=== PATIENT | female | born 1985 | race Caucasian/White ===

== ENCOUNTER 2017-01-08 03:09 | Emergency (ER) ==
[2017-01-08 03:21] VITALS: BP 125/83; TEMP 98.1; BMI 43.5
[2017-01-08 03:36] LABS: BILIRUBIN,URINE Negative (NEGATIVE); KETONES,URINE Negative (NEGATIVE); LEUKOCYTE ESTERASE ,URINE 1+ (NEGATIVE); NITRITE,URINE Negative (NEGATIVE); PH,URINE 5.5 (5-9); PROTEIN,URINE Negative (NEGATIVE); URINE, BLOOD Negative (NEGATIVE)
[2017-01-08 03:42] LABS: ADD URINE MICROSCOPIC YES; BACTERIA,URINE TRACE (NOT PRESENT)
[2017-01-08] MEDS ORDERED: SODIUM CHLORIDE 1,000 ML IV STA (03:47)
[2017-01-08] MEDS ORDERED: DEMEROL 25 MG/ML SYRINGE IVP STA (03:48)
[2017-01-08] MEDS ORDERED: ZOFRAN 4 MG/2 ML IVP STA (03:48)
[2017-01-08 04:08] LABS: BASOPHILS # (AUTO) 0.1 K/uL (0-0.2); BASOPHILS % (AUTO) 0.7 % (0.0-3.0); EOSINOPHILS # (AUTO) 0.3 K/ul (0.0-0.7); EOSINOPHILS % (AUTO) 3.1 % (0.0-7.0); HEMATOCRIT 43.5 % (37.0-47.0); HEMOGLOBIN 15.1 g/dl (12.0-16.0); IMMATURE GRANULOCYTE % (AUTO) 0.4 % (0.0-5.0); LYMPHOCYTES # (AUTO) 3.7 K/uL (0.60-3.4); LYMPHOCYTES % (AUTO) 36.9 (10.0-50.0); MEAN CORPUSCULAR HEMOGLOBIN 29.8 pg (27.0-31.0); MEAN CORPUSCULAR HGB CONC 34.7 (31.8-35.4); MEAN CORPUSCULAR VOLUME 85.8 fl (81.0-99.0); MONOCYTES # (AUTO) 0.7 K/uL (0.4-2.0); MONOCYTES % (AUTO) 7.2 (0-10); NEUTROPHILS # (AUTO) 5.1 K/ul (2.0-6.9); NEUTROPHILS % (AUTO) 51.7; PLATELET COUNT 247 10^3/uL (140-440); RED BLOOD COUNT 5.07 10^6/ul (4.20-5.40); WHITE BLOOD COUNT 9.93 K/ul (4.6-10.2)
[2017-01-08] MEDS ORDERED: BENADRYL IVP STA (04:20)
[2017-01-08] MEDS ORDERED: BENADRYL ONE (04:21)
[2017-01-08 04:24] LABS: SERUM PREGNANCY INTERNAL QC INTERNAL QC VALID
[2017-01-08 04:29] LABS: ALBUMIN 3.5 g/dL (3.4-5.0); ALBUMIN/GLOBULIN RATIO 0.83; ANION GAP 12.9; BILIRUBIN,TOTAL 0.35 mg/dL (0.00-1.20); BUN/CREATININE RATIO 11.62; CALCIUM 9.2 mg/dL (8.2-10.2); CREATININE 0.86 mg/dL (0.60-1.30); POTASSIUM 3.9 mmol/L (3.5-5.10); TOTAL PROTEIN 7.7 g/dL (6.4-8.2)
[2017-01-08 05:11] LABS: ERYTHROCYTE SEDIMENTATION RATE 26 mm/hr (0-20); ESR INTERNAL QC INTERNAL QC VALID
--- NOTE | 2017-01-08 05:34 | CT ---
EXAM: CT scan abdomen pelvis with without contrast HISTORY: Right lower quadrant pain COMPARISON: CT scan abdomen pelvis 07/27/2016 FINDINGS: Contiguous axial images were obtained through the abdomen and pelvis both before after un eventful administration of intravenous contrast utilizing 3-mm collimation. Sagittal and coronal re constructions were imaged and reviewed. The visualized lung bases are clear.. There has been prior cholecystectomy.. The right lobe of liver is enlarged which may represent a normal variant. The pa ncreas, spleen and adrenal glands have normal enhanced CT appearance. The kidneys excrete contrast in a normal fashion bilaterally. There is no evidence of free fluid or inflammatory changes.. Bila teral ensure devices are noted. Bone windows reveals no evidence of lytic or blastic lesions. IMPRESSION: No acute intra-abdominal findings. Prior cholecystectomy.
[2017-01-08] MEDS ORDERED: CIPRO PO STA (06:14)
--- NOTE | 2017-01-08 06:15 | ED.PDOC ---
General ED Provider: Dr. NATIVIDAD MATHIAS-ER Chief Complaint: Abdominal Pain Stated Complaint: i hurt down low Time Seen by Physician: 03:15 Mode of Arrival: Walk-In Information Source: Patient Exam Limitations: No limitations Primary Care Provider: IVIS FAIRBANKS Nursing and Triage Documentation Reviewed and Agree: Yes GI Complaint Exam - Abdominal Pain Complaint/Exam Onset: Gradual Duration: 07/19 weejs Symptoms Are: Still present Timing: Intermittent Initial Severity: Mild Current Severity: Mild Location of Pain: Discrete, Suprapubic Radiates To: Reports: Flank Character: Reports: Dull, Aching Aggravating: Reports: None Alleviating: Reports: Spontaneous resolution Associated Signs and Symptoms: Reports: Back pain, Urinary frequency, Nausea. Denies: Diaphoresis, Fever, Cough, Chest pain, Dizziness, Constipation, Blood in stool, Dysuria, Decreased urine output, Decreased appetite, Vaginal bleeding , Vaginal discharge, Vomiting, Diarrhea, Sore throat, Decreased activity Related History: Reports: Similar episode AAA Risk Factors: Reports: None Ovarian Torsion Risk Factors: Reports: Reproductive age Surgical Obstruction Risk Factors: Reports: Prior abdominal surgery Related Surgical History: Reports: Cholecystectomy Patient Rh Status: Unknown Abdominal Findings: Present: None Differential Diagnoses: Constipation, Pancreatitis, Ureteral Stone Review of Systems - Review Of Systems Constitutional: Reports: No symptoms Eyes: Reports: No symptoms Ears, Nose, Mouth, Throat: Reports: No symptoms Respiratory: Reports: No symptoms Cardiac: Reports: No symptoms GI: Reports: Abdominal pain, Nausea : Reports: No symptoms Musculoskeletal: Reports: No symptoms Skin: Reports: No symptoms Neurological: Reports: No symptoms Endocrine: Reports: No symptoms Hematologic/Lymphatic: Reports: No symptoms All Other Systems: Reviewed and Negative Past Medical History - Past Medical History Endocrine: Reports: None Cardiovascular: Reports: None Respiratory: Reports: None Hematological: Reports: None Gastrointestinal: Reports: None Genitourinary: Reports: None Neuro/Psych: Reports: None Musculoskeletal: Reports: None Cancer: Reports: None Last Menstrual Period: LAST WEEK Other Pertinent Past Medical History: 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 , viD def - Surgical History General Surgical History: Reports: Tubal ligation, Cholecystectomy, Other ( TUBES TO EARS) - Family History Family History: Reports: None - Social History Smoking Status: Current every day smoker, Heavy tobacco smoker Hx Substance Use: No Alcohol Screening: None Lives: With family - Immunizations Tetanus Shot up to Date: Yes Physical Exam - Physical Exam Appearance: Well-appearing, No pain distress, Well-nourished Pain Distress: Mild Eyes: ROSA ELENA, EOMI, Conjunctiva clear ENT: Ears normal, Nose normal, Oropharynx normal Neck: Supple Respiratory: Airway patent, Breath sounds clear, Breath sounds equal, Respirations nonlabored Cardiovascular: RRR GI/: Soft, Nontender, No masses, Bowel sounds normal, No Organomegaly Musculoskeletal: Normal strength, ROM intact, No edema, No calf tenderness Skin: Warm Neurological: Sensation intact Psychiatric: Affect appropriate, Mood appropriate Interpretation - Radiology Interpretation Radiology Interpretation By: Radiologist Radiology Results: Negative Exam Interpreted: CT Scan Re-Evaluation - Re-Evaluation Time of Re-Evaluation: 06:17 Status: Improved Vital Signs Stable: Yes Pain Level: 0 Appearance: NAD Lungs: Clear Skin: Warm and Dry Neuro: Alert and Oriented X3 CV: RRR Critical Care Note - Critical Care Note Total Time (mins): 0 Course - Course Hematology/Chemistry: 01/08/17 04:05 01/08/17 04:05 Orders, Labs, Meds: Lab Review 01/08/17 01/08/17 03:30 04:05 WBC 9.93 RBC 5.07 Hgb 15.1 Hct 43.5 MCV 85.8 MCH 29.8 MCHC 34.7 RDW Coeff of Alice 12.7 Plt Count 247 Immature Gran % (Auto) 0.4 Neut % (Auto) 51.7 Lymph % (Auto) 36.9 [place] % (Auto) 7.2 Eos % (Auto) 3.1 Baso % (Auto) 0.7 Immature Gran # (Auto) 0.0 Neut # 5.1 Lymph # 3.7 H [place] # 0.7 Eos # 0.3 Baso # 0.1 ESR 26 H Sodium 139 Potassium 3.9 Chloride 103 Carbon Dioxide 27 Anion Gap 12.9 BUN 10 Creatinine 0.86 Estimated GFR (MDRD) 76.00 BUN/Creatinine Ratio 11.62 Glucose 78 Calcium 9.2 Total Bilirubin 0.35 AST 18 ALT 50 Alkaline Phosphatase 93 Total Protein 7.7 Albumin 3.5 Globulin 4.2 Albumin/Globulin Ratio 0.83 Amylase 38 Lipase 17 Serum , Qual Negative Urine Color Yellow Urine Clarity Slightly Urine pH 5.5 Ur Specific [place] 1.025 Urine Protein Negative Urine Glucose (UA) Negative Urine Ketones Negative Urine Blood Negative Urine Nitrite Negative Urine Bilirubin Negative Urine Urobilinogen 1.0 Ur Leukocyte Esterase 1+ Urine Microscopic WBC 5-10 Ur Squamous Epith Cells 2-5 Urine Bacteria Trace Orders Category Date Time Status NPO REMINDER: IMAGING ONCE CARE 01/08/17 03:47 Completed IV [ED IV/MEDIPORT/POWERPORT] .ONCE EMERGENCY 01/08/17 03:46 Active AMYLASE Stat LAB 01/08/17 04:05 Completed CBC W/ AUTO DIFF Stat LAB 01/08/17 04:05 Completed COMPREHENSIVE METABOLIC PANEL Stat LAB 01/08/17 04:05 Completed ESR Stat LAB 01/08/17 04:05 Completed LIPASE Stat LAB 01/08/17 04:05 Completed SERUM Stat LAB 01/08/17 04:05 Completed UA [URINALYSIS C & S IF INDICATED] Stat LAB 01/08/17 03:30 Completed URINE CULTURE Stat LAB 01/08/17 03:42 Received 0.9 % Sodium Chloride [Saline Flush] MEDS 01/08/17 03:46 Ordered 1 syr IVF PRN PRN Ciprofloxacin HCl [Cipro] MEDS 01/08/17 06:14 Stat 500 mg PO ONCE STA Diphenhydramine Inj [Benadryl] MEDS 01/08/17 04:20 Discontinued 25 mg IVP ONCE STA Diphenhydramine Inj [Benadryl] MEDS 01/08/17 04:21 Discontinued 50 mg .ROUTE .STK-MED ONE Meperidine HCl/Pf [Demerol 25 mg/ml Syringe] MEDS 01/08/17 03:48 Discontinued 25 mg IVP ONCE STA Ondansetron HCl/Pf [Zofran 4 mg/2 ml] MEDS 01/08/17 03:48 Discontinued 4 mg IVP ONCE STA Sodium Chloride 0.9% [Sodium Chloride] 1,000 ml MEDS 01/08/17 03:47 Active IV 100 mls/hr CT ABDOMEN/PELVIS W/WO CONTRAS Stat RADS 01/08/17 03:47 Completed Medications Generic Name Dose Route Start Last Admin Trade Name Freq PRN Reason Stop Dose Admin Sodium Chloride 1,000 mls @ 100 mls/hr 01/08/17 03:47 01/08/17 04:06 Sodium Chloride IV 01/08/17 13:46 100 mls/hr .Q10H STA Administration Sodium Chloride 1 syr 01/08/17 03:46 01/08/17 04:14 Saline Flush IVF 1 syr PRN PRN Administration To flush IV Discontinued Medications Generic Name Dose Route Start Last Admin Trade Name Lien PRN Reason Stop Dose Admin Diphenhydramine HCl 25 mg 01/08/17 04:20 01/08/17 04:24 Benadryl IVP 01/08/17 04:21 25 mg ONCE STA Administration Meperidine HCl 25 mg 01/08/17 03:48 01/08/17 04:14 Demerol 25 Mg/Ml Syringe IVP 01/08/17 03:49 25 mg ONCE STA Administration Ondansetron HCl 4 mg 01/08/17 03:48 01/08/17 04:10 Zofran 4 Mg/2 Ml IVP 01/08/17 03:49 4 mg ONCE STA Administration Vital Signs: Temp Pulse Resp BP Pulse Ox 01/08/17 03:10 98.1 F 98 H 18 125/83 100 Departure - Departure Time of Disposition: 06:17 Disposition: HOME SELF-CARE Discharge Problem: Urinary tract disease Instructions: Urinary Tract Infection in Women (ED) Condition: Good Pt referred to PMD for follow-up: Yes Additional Instructions: cipro 500mg bid x 7days--f/u with pcp this week to recheck urine Allergies/Adverse Reactions: Allergies banana Adverse Reaction (Verified 01/08/17 03:22) clarithromycin [From Biaxin] Adverse Reaction (Verified 01/08/17 03:22) morphine Adverse Reaction (Verified 01/08/17 03:22) nicotine [From Nicoderm CQ] Adverse Reaction (Verified 01/08/17 03:22) Penicillins Adverse Reaction (Verified 01/08/17 03:22) prednisone Adverse Reaction (Verified 01/08/17 03:23) STATES ANYTHING OVER 10MG RAISES THE BLOOD PRESSURE tramadol Adverse Reaction (Verified 01/08/17 03:22) Home Medications: Ambulatory Orders Cholecalciferol (Vitamin D3) [Vitamin D] 50,000 unit PO WEEKLY 04/19/14 Cyanocobalamin (Vitamin B-12) [Vitamin B-12] 1,000 mcg IM DIRECTED 04/19/14 Ibuprofen 800 mg PO TID PRN 01/08/17 Transfer Form Completed: No Disposition Discussed With: Patient
== END 2017-01-08 06:25 | disposition home or self-care (01) ==
LOC: ED 03:09
DX: N39.0 Urinary tract infection, site not specified (principal); F17.210 Nicotine dependence, cigarettes, uncomplicated
CPT/HCPCS: 36415; 80053; 81001; 82150; 83690; 84703; 85025; 85651; 87086; 96361; 96374; 96375; 99283

== ENCOUNTER 2017-01-24 17:38 | Emergency (ER) ==
[2017-01-24 17:44] VITALS: BP 120/79; TEMP 99.6; BMI 46.6
--- NOTE | 2017-01-24 17:54 | ED.PDOC ---
General ED Provider: Dr. VINNIE PAZ JR Chief Complaint: Chest Pain Stated Complaint: 2 days nausea unable to keep liquids down--temp 102 with cough - [facility] sunday 3 days ago allergic reaction food throat swelling has been sick since treating for flu-2 days---[End]99.6 109 20 95% 120/79 04/26 Time Seen by Physician: 17:53 Mode of Arrival: Walk-In Information Source: Family Exam Limitations: No limitations Nursing and Triage Documentation Reviewed and Agree: No Review of Systems - Review Of Systems Constitutional: Reports: Chills, Malaise, Weakness, Sweats, Loss of appetite Eyes: Reports: No symptoms Ears, Nose, Mouth, Throat: Reports: Throat pain Respiratory: Reports: No symptoms Cardiac: Reports: No symptoms GI: Reports: Abdominal pain, Nausea, Vomiting. Denies: Diarrhea : Reports: No symptoms Musculoskeletal: Reports: No symptoms Skin: Reports: No symptoms Neurological: Reports: No symptoms Endocrine: Reports: No symptoms Hematologic/Lymphatic: Reports: No symptoms All Other Systems: Other Past Medical History - Past Medical History Endocrine: Reports: None Cardiovascular: Reports: None Respiratory: Reports: None Hematological: Reports: None Gastrointestinal: Reports: None Genitourinary: Reports: Kidney stones Neuro/Psych: Reports: None Musculoskeletal: Reports: None Cancer: Reports: None Last Menstrual Period: january 19, 2017 Other Pertinent Past Medical History: 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 , viD deff,, PERNICIOUS ANEMIA - Surgical History General Surgical History: Reports: Tubal ligation, Cholecystectomy, Other ( TUBES TO EARS) - Family History Family History: Reports: None - Social History Smoking Status: Current every day smoker, Heavy tobacco smoker Hx Substance Use: No Alcohol Screening: None Physical Exam - Physical Exam Appearance: Ill-appearing Ill-appearing: Mild Pain Distress: Mild Eyes: ROSA ELENA, EOMI, Conjunctiva clear ENT: Ears normal, Nose normal, Oropharynx normal Neck: Supple Respiratory: Airway patent, Breath sounds clear, Breath sounds equal, Respirations nonlabored Cardiovascular: RRR, Pulses normal, No rub, No murmur GI/: Soft, No masses, Bowel sounds normal, No Organomegaly, Tender (right upper abdomen) Musculoskeletal: Normal strength, ROM intact, No edema, No calf tenderness Skin: Warm, Dry, Normal color Neurological: Sensation intact, Motor intact, Reflexes intact, Cranial nerves intact, Alert, Oriented Psychiatric: Affect appropriate, Mood appropriate Re-Evaluation - Re-Evaluation Time of Re-Evaluation: 19:04 (still nauseated) Status: Unchanged Physician Notification - Case Discussed Endorsed To/Discussed With: neil Time of Discussion: 19:05 (patient still nauseated) Critical Care Note - Critical Care Note Total Time (mins): 0 Course - Course Hematology/Chemistry: 01/24/17 18:04 01/24/17 18:04 Orders, Labs, Meds: Lab Review 01/24/17 01/24/17 17:50 18:04 WBC 13.84 H RBC 4.94 Hgb 14.8 Hct 42.2 MCV 85.4 MCH 30.0 MCHC 35.1 RDW Coeff of [place] 12.8 Plt Count 244 Immature Gran % (Auto) 0.5 Neut % (Auto) 73.9 Lymph % (Auto) 15.5 [place] % (Auto) 6.6 Eos % (Auto) 3.0 Baso % (Auto) 0.5 Immature Gran # (Auto) 0.1 Neut # 10.2 H Lymph # 2.2 [place] # 0.9 Eos # 0.4 Baso # 0.1 Sodium 138 Potassium 3.7 Chloride 103 Carbon Dioxide 27 Anion Gap 11.7 BUN 8 Creatinine 0.74 Estimated GFR (MDRD) 90.00 BUN/Creatinine Ratio 10.81 Glucose 94 Calcium 8.7 Total Bilirubin 0.35 AST 14 L ALT 24 Alkaline Phosphatase 84 Total Protein 7.2 Albumin 3.3 L Globulin 3.9 Albumin/Globulin Ratio 0.85 Amylase 41 Lipase 21 Urine Color Yellow Urine Clarity Slightly Urine pH 5.0 Ur Specific [place] 1.020 Urine Protein Negative Urine Glucose (UA) Negative Urine Ketones Negative Urine Blood Negative Urine Nitrite Negative Urine Bilirubin Negative Urine Urobilinogen 0.2 Ur Leukocyte Esterase 1+ Urine Microscopic WBC 5-10 Ur Squamous Epith Cells 10-20 H. pylori IgG Antibody Positive Orders Category Date Time Status ED IV/MEDIPORT/POWERPORT .ONCE EMERGENCY 01/24/17 17:58 Active AMYLASE Stat LAB 01/24/17 18:04 Completed CBC W/ AUTO DIFF Stat LAB 01/24/17 18:04 Completed COMPREHENSIVE METABOLIC PANEL Stat LAB 01/24/17 18:04 Completed H. PYLORI SCREEN Stat LAB 01/24/17 18:04 Completed LIPASE Stat LAB 01/24/17 18:04 Completed URINALYSIS C & S IF INDICATED Stat LAB 01/24/17 17:50 Completed URINE CULTURE Routine LAB 01/24/17 17:50 Received 0.9 % Sodium Chloride [Saline Flush] MEDS 01/24/17 17:58 Ordered 1 syr IVF PRN PRN Ondansetron HCl/Pf [Zofran 4 mg/2 ml] MEDS 01/24/17 17:59 Discontinued 4 mg IVP ONCE STA Promethazine HCl [Phenergan 25 mg/ml Vial] 25 mg MEDS 01/24/17 19:04 Active 0.9 % Sodium Chloride [Sodium Chloride] 50 ml IV ONCE Sodium Chloride 0.9% [Sodium Chloride] 1,000 ml MEDS 01/24/17 17:59 Discontinued IV BOLUS Medications Generic Name Dose Route Start Last Admin Trade Name Freq PRN Reason Stop Dose Admin Promethazine HCl 25 mg/ Sodium 51 mls @ 75 mls/hr 01/24/17 19:04 Chloride IV 01/24/17 19:44 ONCE STA Sodium Chloride 1 syr 01/24/17 17:58 01/24/17 18:16 Saline Flush IVF 1 syr PRN PRN Administration To flush IV Discontinued Medications Generic Name Dose Route Start Last Admin Trade Name Freq PRN Reason Stop Dose Admin Sodium Chloride 1,000 mls @ 1,000 mls/hr 01/24/17 17:59 01/24/17 18:16 Sodium Chloride IV 01/24/17 18:58 1,000 mls/hr BOLUS STA Administration Ondansetron HCl 4 mg 01/24/17 17:59 01/24/17 18:18 Zofran 4 Mg/2 Ml IVP 01/24/17 18:00 4 mg ONCE STA Administration Vital Signs: Temp Pulse Resp BP Pulse Ox 01/24/17 17:39 99.6 F 109 H 20 120/79 95 Departure - Departure Time of Disposition: 18:37 Disposition: HOME SELF-CARE Discharge Problem: Gastritis, Helicobacter positive gastritis Instructions: Gastritis (ED), Helicobacter Pylori (ED) Condition: Good Pt referred to PMD for follow-up: Yes Additional Instructions: home phenrgan for nausea quadruple therapy for helicobacter return if unable to keep clear liquids down Prescriptions: Bismuth/Metronid/Tetracycline [Pylera Capsule] 1 each PO DIRECTED #1 packet Lansoprazole/Amoxiciln/Clarith [Prevpac Patient Pack] 1 each PO BID #1 combo..pkg Allergies/Adverse Reactions: Allergies banana Adverse Reaction (Verified 01/24/17 17:47) clarithromycin [From Biaxin] Adverse Reaction (Verified 01/24/17 17:47) meperidine [From Demerol] Adverse Reaction (Verified 01/24/17 17:47) morphine Adverse Reaction (Verified 01/24/17 17:47) nicotine [From Nicoderm CQ] Adverse Reaction (Verified 01/24/17 17:47) Penicillins Adverse Reaction (Verified 01/24/17 17:47) prednisone Adverse Reaction (Verified 01/24/17 17:47) STATES ANYTHING OVER 10MG RAISES THE BLOOD PRESSURE tramadol Adverse Reaction (Verified 01/24/17 17:47) Home Medications: Ambulatory Orders Cholecalciferol (Vitamin D3) [Vitamin D] 50,000 unit PO WEEKLY 04/19/14 Cyanocobalamin (Vitamin B-12) [Vitamin B-12] 1,000 mcg IM DIRECTED 04/19/14 Ibuprofen 800 mg PO TID PRN 01/08/17 Bismuth/Metronid/Tetracycline [Pylera Capsule] 1 each PO DIRECTED #1 packet 01/24/17 Lansoprazole/Amoxiciln/Clarith [Prevpac Patient Pack] 1 each PO BID #1 combo..pkg 01/24/17
[2017-01-24] MEDS ORDERED: SODIUM CHLORIDE 1,000 ML IV STA ×2 (17:59→19:06)
[2017-01-24] MEDS ORDERED: ZOFRAN 4 MG/2 ML IVP STA (17:59)
[2017-01-24 18:08] LABS: BILIRUBIN,URINE Negative (NEGATIVE); KETONES,URINE Negative (NEGATIVE); LEUKOCYTE ESTERASE ,URINE 1+ (NEGATIVE); NITRITE,URINE Negative (NEGATIVE); PROTEIN,URINE Negative (NEGATIVE); URINE, BLOOD Negative (NEGATIVE)
[2017-01-24 18:10] LABS: ADD URINE MICROSCOPIC YES
[2017-01-24 18:17] LABS: BASOPHILS # (AUTO) 0.1 K/uL (0-0.2); BASOPHILS % (AUTO) 0.5 % (0.0-3.0); EOSINOPHILS # (AUTO) 0.4 K/ul (0.0-0.7); HEMATOCRIT 42.2 % (37.0-47.0); HEMOGLOBIN 14.8 g/dl (12.0-16.0); IMMATURE GRANULOCYTE % (AUTO) 0.5 % (0.0-5.0); LYMPHOCYTES # (AUTO) 2.2 K/uL (0.60-3.4); LYMPHOCYTES % (AUTO) 15.5 (10.0-50.0); MEAN CORPUSCULAR HGB CONC 35.1 (31.8-35.4); MEAN CORPUSCULAR VOLUME 85.4 fl (81.0-99.0); MONOCYTES # (AUTO) 0.9 K/uL (0.4-2.0); MONOCYTES % (AUTO) 6.6 (0-10); NEUTROPHILS # (AUTO) 10.2 K/ul (2.0-6.9); NEUTROPHILS % (AUTO) 73.9; PLATELET COUNT 244 10^3/uL (140-440); RED BLOOD COUNT 4.94 10^6/ul (4.20-5.40); WHITE BLOOD COUNT 13.84 K/ul (4.6-10.2)
[2017-01-24 18:23] LABS: H. PYLORI ANTIBODY POSITIVE (NEGATIVE)
[2017-01-24 18:24] LABS: H.PYLORI INTERNAL QC INTERNAL QC VALID
[2017-01-24 18:30] LABS: ALBUMIN 3.3 g/dL (3.4-5.0); ALBUMIN/GLOBULIN RATIO 0.85; ANION GAP 11.7; BILIRUBIN,TOTAL 0.35 mg/dL (0.00-1.20); BUN/CREATININE RATIO 10.81; CALCIUM 8.7 mg/dL (8.2-10.2); CREATININE 0.74 mg/dL (0.60-1.30); POTASSIUM 3.7 mmol/L (3.5-5.10); TOTAL PROTEIN 7.2 g/dL (6.4-8.2)
[2017-01-24] MEDS ORDERED: PHENERGAN 25 MG/ML VIAL 25 MG in SODIUM CHLORIDE 50 ML IV STA (19:04)
[2017-01-24] MEDS ORDERED: PHENERGAN 25 MG/ML VIAL ONE (19:08)
[2017-01-24] MEDS ORDERED: PROTONIX IV IVP STA (19:08)
[2017-01-24] MEDS ORDERED: GI COCKTAIL PO STA (19:08)
[2017-01-24] MEDS ORDERED: DUONEB NEB STA (19:13)
== END 2017-01-24 20:27 | disposition home or self-care (01) ==
LOC: ED 17:38
DX: A04.8 Other specified bacterial intestinal infections (principal); K29.70 Gastritis, unspecified, without bleeding; F17.210 Nicotine dependence, cigarettes, uncomplicated; Z79.899 Other long term (current) drug therapy
CPT/HCPCS: 36415; 80053; 81001; 82150; 83690; 85025; 86677; 87086; 94640; 96361; 96365; 96375; 99283

== ENCOUNTER 2017-02-07 23:25 | Emergency (ER) ==
--- NOTE | 2017-02-07 23:38 | ED.PDOC ---
General ED Provider: Dr. LESIA HINKLE Chief Complaint: Shortness of Air Stated Complaint: Pateint is a 31 year old sore throat, felt like something was stuck in throat making chest feel tight, went to bed, woke up itching all over, whelps on both hands, then started feeling short of air. Time Seen by Physician: 23:40 Mode of Arrival: Walk-In Information Source: Patient Exam Limitations: No limitations Nursing and Triage Documentation Reviewed and Agree: Yes Respiratory Complaint Exam - Shortness of Air Complaint/Exam Onset/Duration: 2 hours ago Symptoms Are: Still present Timing: Constant Initial Severity: Moderate Current Severity: Mild Character: Reports: Dyspnea at rest Aggravating: Reports: None Alleviating: Reports: None Associated Signs and Symptoms: Denies: Cough, Wheezing, Chest pain with cough, Chest pain, Fever, Chills, Diaphoresis, Nasal congestion, Dizziness, Calf pain, Calf swelling, Edema, Rapid breathing, Labored breathing, Decreased intake Respiratory Distress: None Stridor Present: No Tracheal Deviation: No Subcutaneous Emphysema: No Accessory Muscle Use: No Retractions: Not Present Diminished Breath Sounds: No Prolonged Expiratory Phase: No Unable to Speak Full Sentences: No Fatigue: No Leg Swelling: No Eduardo's Sign Present: No Grunting Respirations: No Kussmaul Respirations: No Differential Diagnoses: Bronchiolitis Review of Systems - Review Of Systems Constitutional: Reports: No symptoms Eyes: Reports: No symptoms Ears, Nose, Mouth, Throat: Reports: Throat pain Respiratory: Reports: No symptoms Cardiac: Reports: Chest pain GI: Reports: No symptoms : Reports: No symptoms Musculoskeletal: Reports: No symptoms Skin: Reports: Rash Neurological: Reports: No symptoms Endocrine: Reports: No symptoms Hematologic/Lymphatic: Reports: No symptoms All Other Systems: Reviewed and Negative Past Medical History - Past Medical History Endocrine: Reports: None Cardiovascular: Reports: None Respiratory: Reports: None Hematological: Reports: None Gastrointestinal: Reports: None Genitourinary: Reports: Kidney stones Neuro/Psych: Reports: None Musculoskeletal: Reports: None Cancer: Reports: None Last Menstrual Period: 01/17/17 Other Pertinent Past Medical History: B 10 deff , viD deff,, PERNICIOUS ANEMIA - Surgical History General Surgical History: Reports: Tubal ligation, Cholecystectomy, Other ( TUBES TO EARS) - Family History Family History: Reports: None - Social History Smoking Status: Current every day smoker Hx Substance Use: No Alcohol Screening: None - Immunizations Tetanus Shot up to Date: Yes Physical Exam - Physical Exam Appearance: Obese Ill-appearing: Moderate Pain Distress: Mild Eyes: ROSA ELENA ENT: Oropharynx normal Neck: Supple Respiratory: Airway patent, Breath sounds clear, Breath sounds equal, Respirations nonlabored Cardiovascular: RRR, Pulses normal, No rub, No murmur GI/: Soft, Nontender Musculoskeletal: Normal strength, ROM intact, No edema, No calf tenderness Neurological: Sensation intact, Motor intact, Reflexes intact, Cranial nerves intact, Alert, Oriented Critical Care Note - Critical Care Note Total Time (mins): 0 Course - Course Orders, Labs, Meds: Orders Category Date Time Status MOLECULAR GROUP A STREP Stat LAB 02/07/17 23:45 Completed STREP SCREEN Stat LAB 02/07/17 23:45 Completed Diphenhydramine HCl [Benadryl] MEDS 02/07/17 23:42 Discontinued 50 mg PO ONCE STA Hydrocortisone [Hydrocortisone 1% Cream] MEDS 02/08/17 00:08 Discontinued 1 applic TP ONCE STA Loratadine [Claritin] MEDS 02/08/17 00:09 Discontinued 10 mg PO ONCE STA Methylprednisolone Sod Succ/Pf [Solu-Medrol 125 mg] MEDS 02/07/17 23:40 Discontinued 125 mg IM ONCE STA Ranitidine HCl [Zantac] MEDS 02/08/17 00:09 Discontinued 300 mg PO ONCE STA Medications Discontinued Medications Generic Name Dose Route Start Last Admin Trade Name Darinelq PRN Reason Stop Dose Admin Diphenhydramine HCl 50 mg 02/07/17 23:42 02/08/17 00:00 Benadryl PO 02/07/17 23:43 50 mg ONCE STA Administration Hydrocortisone 1 applic 02/08/17 00:08 02/08/17 00:17 Hydrocortisone 1% Cream TP 02/08/17 00:09 1 applic ONCE STA Administration Loratadine 10 mg 02/08/17 00:09 02/08/17 00:18 Claritin PO 02/08/17 00:10 10 mg ONCE STA Administration Methylprednisolone Sodium Succinate 125 mg 02/07/17 23:40 02/08/17 00:11 Solu-Medrol 125 Mg IM 02/07/17 23:41 125 mg ONCE STA Administration Ranitidine HCl 300 mg 02/08/17 00:09 02/08/17 00:18 Zantac PO 02/08/17 00:10 300 mg ONCE STA Administration Vital Signs: Temp Pulse Resp BP Pulse Ox 02/07/17 23:26 98 F 82 20 101/73 96 Departure - Departure Time of Disposition: 00:15 Disposition: HOME SELF-CARE Discharge Problem: Dermatitis Instructions: Contact Dermatitis (ED) Condition: Stable Pt referred to PMD for follow-up: Yes Additional Instructions: Take prednisone 10mg daily for 5 days Avoid any of the causative agent Prescriptions: Prednisone 10 mg PO ONCE #5 tablet Allergies/Adverse Reactions: Allergies banana Adverse Reaction (Verified 02/07/17 23:36) clarithromycin [From Biaxin] Adverse Reaction (Verified 02/07/17 23:36) meperidine [From Demerol] Adverse Reaction (Verified 02/07/17 23:36) morphine Adverse Reaction (Verified 02/07/17 23:36) nicotine [From Nicoderm CQ] Adverse Reaction (Verified 02/07/17 23:36) Penicillins Adverse Reaction (Verified 02/07/17 23:36) prednisone Adverse Reaction (Verified 02/07/17 23:36) STATES ANYTHING OVER 10MG RAISES THE BLOOD PRESSURE tramadol Adverse Reaction (Verified 02/07/17 23:36) Home Medications: Ambulatory Orders Cholecalciferol (Vitamin D3) [Vitamin D] 50,000 unit PO WEEKLY 04/19/14 Cyanocobalamin (Vitamin B-12) [Vitamin B-12] 1,000 mcg IM DIRECTED 04/19/14 Ibuprofen 800 mg PO TID PRN 01/08/17 Prednisone 10 mg PO ONCE #5 tablet 02/07/17 Disposition Discussed With: Patient, Family
[2017-02-07] MEDS ORDERED: SOLU-MEDROL 125 MG IM STA (23:40)
[2017-02-07] MEDS ORDERED: BENADRYL PO STA (23:42)
[2017-02-07 23:49] VITALS: BP 101/73; TEMP 98; BMI 43.5
[2017-02-08] MEDS ORDERED: HYDROCORTISONE 1% CREAM TP STA (00:08)
[2017-02-08] MEDS ORDERED: HYDROCORTISONE 2.5% CREAM TP STA (00:08)
[2017-02-08] MEDS ORDERED: ZANTAC PO STA (00:09)
[2017-02-08] MEDS ORDERED: CLARITIN PO STA (00:09)
== END 2017-02-08 00:40 | disposition home or self-care (01) ==
LOC: ED 23:25
DX: L30.9 Dermatitis, unspecified (principal); L29.9 Pruritus, unspecified; J02.9 Acute pharyngitis, unspecified; R06.02 Shortness of breath; R07.89 Other chest pain; F17.210 Nicotine dependence, cigarettes, uncomplicated
CPT/HCPCS: 87651; 87880; 96372; 99283

== ENCOUNTER 2017-06-21 20:26 | Emergency (ER) ==
[2017-06-21 20:32] VITALS: BP 139/99; TEMP 99; BMI 37.9
--- NOTE | 2017-06-21 20:47 | ED.PDOC ---
General ED Provider: Dr. LESIA HINKLE Chief Complaint: Tooth Problem Stated Complaint: Patient is a 32 year old female who complains of right bottom molar pain, has been seen by dentist and prescribed clindamycin with a two week apt. Time Seen by Physician: 21:08 Mode of Arrival: Walk-In Information Source: Patient Exam Limitations: No limitations Primary Care Provider: IVIS FAIRBANKS Nursing and Triage Documentation Reviewed and Agree: Yes EENT Complaint Exam - Dental/Oral Complaint/Exam Mechanism of Injury: No known trauma Onset/Duration: weeks Symptoms Are: Still present Timing: Constant Initial Severity: Moderate Current Severity: Moderate Location: Right lower molar Character: Reports: Aching, Throbbing Aggravating: Reports: Heat, Cold Alleviating: Reports: None Associated Signs and Symptoms: Reports: Foul odor, Foul taste in mouth Related History: Reports: Similar episode Cardiac Risk Factors: Reports: None Dental/Oral Surgical History: Reports: None Tooth Findings: Present: Gross decay Cervical Lymphadenopathy Present: No Facial Swelling Present: No Bleeding Present: No Oropharynx Findings: Absent: Clots, Active bleeding Septal Hematoma: No Foreign Body Present: No Dysphagia Present: No Drooling Present: No Asymmetrical Tonsillar Swelling Present: No Uvula Midline: Yes Perla-tonsillar Fluctuence: No Trismus Present: No Palatal Petechiae Present: No Scarlatinaform Rash Present: No Lesions: Absent: Lip, Gums, Tongue, Buccal Mucosa, Pharynx Exanthem: Absent: Lip, Gums, Tongue, Buccal Mucosa, Pharynx Vesicles: Absent: Lip, Gums, Tongue, Buccal Mucosa, Pharynx Differential Diagnoses: Dental Caries Review of Systems - Review Of Systems Constitutional: Reports: No symptoms Eyes: Reports: No symptoms Ears, Nose, Mouth, Throat: Reports: Mouth pain Respiratory: Reports: No symptoms Cardiac: Reports: No symptoms GI: Reports: No symptoms : Reports: No symptoms Musculoskeletal: Reports: No symptoms Skin: Reports: No symptoms Neurological: Reports: No symptoms Endocrine: Reports: No symptoms Hematologic/Lymphatic: Reports: No symptoms All Other Systems: Reviewed and Negative Past Medical History - Past Medical History Endocrine: Reports: None Cardiovascular: Reports: None Respiratory: Reports: None Hematological: Reports: None Gastrointestinal: Reports: None Genitourinary: Reports: Kidney stones Neuro/Psych: Reports: None Musculoskeletal: Reports: None Cancer: Reports: None Last Menstrual Period: 3 weeks ago Other Pertinent Past Medical History: 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 , viD deff,, PERNICIOUS ANEMIA - Surgical History General Surgical History: Reports: Tubal ligation, Cholecystectomy, Other ( TUBES TO EARS) - Family History Family History: Reports: None - Social History Smoking Status: Current every day smoker Hx Substance Use: No Alcohol Screening: Occasionally - Immunizations Tetanus Shot up to Date: Yes Physical Exam - Physical Exam Appearance: Ill-appearing, Well-nourished Ill-appearing: Mild Pain Distress: Moderate Eyes: ROSA ELENA, EOMI, Conjunctiva clear ENT: Ears normal, Nose normal, Oropharynx normal Neck: Supple Respiratory: Airway patent, Breath sounds clear, Breath sounds equal, Respirations nonlabored Cardiovascular: RRR, Pulses normal, No rub, No murmur GI/: Soft, Nontender, No masses, Bowel sounds normal, No Organomegaly Musculoskeletal: Normal strength, ROM intact, No edema, No calf tenderness Skin: Warm, Dry, Normal color Neurological: Sensation intact, Motor intact, Reflexes intact, Cranial nerves intact, Alert, Oriented Psychiatric: Affect appropriate, Mood appropriate Critical Care Note - Critical Care Note Total Time (mins): 0 Course - Course Vital Signs: Temp Pulse Resp BP Pulse Ox 06/21/17 20:26 99.0 F 90 20 139/99 H 96 Departure - Departure Time of Disposition: 21:08 Disposition: HOME SELF-CARE Discharge Problem: Toothache Instructions: Toothache (ED) Condition: Fair Pt referred to PMD for follow-up: Yes Additional Instructions: Continue home medications Follow up with Your dentist in 3 days Allergies/Adverse Reactions: Allergies banana Adverse Reaction (Verified 02/07/17 23:36) clarithromycin [From Biaxin] Adverse Reaction (Verified 02/07/17 23:36) meperidine [From Demerol] Adverse Reaction (Verified 02/07/17 23:36) morphine Adverse Reaction (Verified 02/07/17 23:36) nicotine [From Nicoderm CQ] Adverse Reaction (Verified 02/07/17 23:36) Penicillins Adverse Reaction (Verified 02/07/17 23:36) prednisone Adverse Reaction (Verified 02/07/17 23:36) STATES ANYTHING OVER 10MG RAISES THE BLOOD PRESSURE tramadol Adverse Reaction (Verified 02/07/17 23:36) Home Medications: Ambulatory Orders Cholecalciferol (Vitamin D3) [Vitamin D] 50,000 unit PO WEEKLY 04/19/14 Cyanocobalamin (Vitamin B-12) [Vitamin B-12] 1,000 mcg IM DIRECTED 04/19/14 Ibuprofen 800 mg PO TID PRN 01/08/17 Prednisone 10 mg PO ONCE #5 tablet 02/07/17 Disposition Discussed With: Patient, Family
== END 2017-06-21 21:16 | disposition home or self-care (01) ==
LOC: ED 20:26
DX: K08.89 Other specified disorders of teeth and supporting structures (principal); K02.7 Dental root caries; F17.210 Nicotine dependence, cigarettes, uncomplicated
CPT/HCPCS: 99282

== ENCOUNTER 2017-07-05 23:12 | Emergency (ER) ==
[2017-07-05] MEDS ORDERED: TORADOL IM STA (23:13)
[2017-07-05] MEDS ORDERED: IMITREX SUBCUT STA (23:13)
[2017-07-05] MEDS ORDERED: ZOFRAN ODT PO STA (23:13)
[2017-07-05 23:21] VITALS: BP 124/78; TEMP 98.5; BMI 31.9
[2017-07-05] MEDS ORDERED: SOLU-MEDROL 125 MG IM STA (23:56)
--- NOTE | 2017-07-05 23:59 | ED.PDOC ---
General ED Provider: Dr. LESIA HINKLE Chief Complaint: Headache Stated Complaint: Blanquita is a 32 year old female who comes to the ER with Heaches that started yesterday. Pain is worse today. Took Motrin sometime this morning but has not resolved pain. Also admits to nausea. Time Seen by Physician: 23:30 Mode of Arrival: Walk-In Information Source: Patient Exam Limitations: No limitations Primary Care Provider: IVIS FAIRBANKS Nursing and Triage Documentation Reviewed and Agree: Yes Neurological Complaint Exam - Headache Complaint/Exam Onset: Gradual Duration: 2 days Symptoms Are: Still present Timing: Constant Worst Headache Ever: No Initial Severity: Moderate Current Severity: Severe Location: Right, Left, Frontal Character: Reports: Dull, Throbbing Aggravating: Reports: Bright lights Associated Signs and Symptoms: Reports: Nausea, Vomiting. Denies: Dizziness, Seizure, Sinus pressure, Fever, Neck pain, Neck stiffness, Decreased LOC, Visual changes Related History: Reports: Similar episode (one year ago) Related Surgical History: Reports: None SAH Risk Factors: Reports: None Meningitis Risk Factors: Reports: None SDH Risk Factors: Reports: None Temporal Arteritis Risk Factors: Reports: None Normal Head CT Within Last 12 Months: Yes Fundoscopic Exam: Present: Normal Findings Papilledema Present: No Temporal Artery Tenderness: Present: None Sinus Tenderness: Present: None TMJ Tenderness: Present: None Glascow Coma Scale (see protocol): 15 Meningeal Signs Positive: No Pain on Passive Flexion-Positive Kernig's: No ROM Limited In: No Limitiations Focal Weakness: Present: None Focal Sensory Loss: Present: None Gait: Normal Nystagmus Present: No Gag Reflex Present: No [id number]: Normal Findings Romberg Test Positive: No Babinski Sign: Negative Right Heel to Toe Normal: Yes Head Picture: 1 - area of pain Differential Diagnoses: Sinus Headache, Tension Headache, Viral Syndrome Review of Systems - Review Of Systems Constitutional: Reports: No symptoms Eyes: Reports: No symptoms Ears, Nose, Mouth, Throat: Reports: No symptoms Respiratory: Reports: No symptoms Cardiac: Reports: No symptoms GI: Reports: Nausea, Vomiting : Reports: No symptoms Musculoskeletal: Reports: No symptoms Skin: Reports: No symptoms Neurological: Reports: Anxiety, Headache Endocrine: Reports: No symptoms Hematologic/Lymphatic: Reports: No symptoms All Other Systems: Reviewed and Negative Past Medical History - Past Medical History Endocrine: Reports: None Cardiovascular: Reports: None Respiratory: Reports: None Hematological: Reports: None Gastrointestinal: Reports: None Genitourinary: Reports: Kidney stones Neuro/Psych: Reports: None Musculoskeletal: Reports: None Cancer: Reports: None Last Menstrual Period: 06/21/17 Other Pertinent Past Medical History: 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 , viD deff,, PERNICIOUS ANEMIA - Surgical History General Surgical History: Reports: Tubal ligation, Cholecystectomy, Other ( TUBES TO EARS) - Family History Family History: Reports: None - Social History Smoking Status: Current every day smoker Hx Substance Use: No Alcohol Screening: Occasionally - Immunizations Tetanus Shot up to Date: No (unsure) Physical Exam - Physical Exam Appearance: Ill-appearing, Obese Ill-appearing: Mild Pain Distress: Severe Eyes: ROSA ELENA, EOMI, Conjunctiva clear ENT: Ears normal, Nose normal, Oropharynx normal Neck: Supple Respiratory: Airway patent, Breath sounds clear, Breath sounds equal, Respirations nonlabored Cardiovascular: RRR, Pulses normal, No rub, No murmur GI/: Soft, Nontender, No masses, Bowel sounds normal, No Organomegaly Musculoskeletal: Normal strength, ROM intact, No edema, No calf tenderness Skin: Warm, Dry, Normal color Neurological: Sensation intact, Motor intact, Reflexes intact, Cranial nerves intact, Alert, Oriented Psychiatric: Anxious Critical Care Note - Critical Care Note Total Time (mins): 0 Course - Course Orders, Labs, Meds: Orders Category Date Time Status Ketorolac Tromethamine [Toradol] MEDS 07/05/17 23:13 Discontinued 60 mg IM ONCE STA Methylprednisolone Sod Succ/Pf [Solu-Medrol 125 mg] MEDS 07/05/17 23:56 Stat 125 mg IM ONCE STA Ondansetron [Zofran Odt] MEDS 07/05/17 23:13 Discontinued 4 mg PO ONCE STA Sumatriptan Succinate [Imitrex] MEDS 07/05/17 23:13 Discontinued 6 mg SUBCUT ONCE STA Medications Generic Name Dose Route Start Last Admin Trade Name Freq PRN Reason Stop Dose Admin Methylprednisolone Sodium Succinate 125 mg 07/05/17 23:56 Solu-Medrol 125 Mg IM 07/05/17 23:57 ONCE STA Discontinued Medications Generic Name Dose Route Start Last Admin Trade Name Freq PRN Reason Stop Dose Admin Ketorolac Tromethamine 60 mg 07/05/17 23:13 07/05/17 23:36 Toradol IM 07/05/17 23:14 60 mg ONCE STA Administration Ondansetron HCl 4 mg 07/05/17 23:13 07/05/17 23:31 Zofran Odt PO 07/05/17 23:14 4 mg ONCE STA Administration Sumatriptan Succinate 6 mg 07/05/17 23:13 07/05/17 23:36 Imitrex SUBCUT 07/05/17 23:14 6 mg ONCE STA Administration Vital Signs: Temp Pulse Resp BP Pulse Ox 07/05/17 23:14 98.5 F 76 20 124/78 100 Departure - Departure Time of Disposition: 00:11 Disposition: HOME SELF-CARE Discharge Problem: Headache Instructions: Migraine Headache (ED) Condition: Fair Pt referred to PMD for follow-up: Yes Additional Instructions: Follow up with your PC Pin 3 days Take medications as prescribed for nausea Prescriptions: Ondansetron HCl [Zofran Tab] 4 mg PO Q8H PRN #14 tablet PRN Reason: Nausea / Vomiting Allergies/Adverse Reactions: Allergies banana Adverse Reaction (Verified 07/05/17 23:22) clarithromycin [From Biaxin] Adverse Reaction (Verified 07/05/17 23:22) meperidine [From Demerol] Adverse Reaction (Verified 07/05/17 23:22) morphine Adverse Reaction (Verified 07/05/17 23:22) nicotine [From Nicoderm CQ] Adverse Reaction (Verified 07/05/17 23:22) Penicillins Adverse Reaction (Verified 07/05/17 23:22) prednisone Adverse Reaction (Verified 07/05/17 23:22) STATES ANYTHING OVER 10MG RAISES THE BLOOD PRESSURE tramadol Adverse Reaction (Verified 07/05/17 23:22) Home Medications: Ambulatory Orders Cholecalciferol (Vitamin D3) [Vitamin D] 50,000 unit PO WEEKLY 04/19/14 Cyanocobalamin (Vitamin B-12) [Vitamin B-12] 1,000 mcg IM DIRECTED 04/19/14 Ibuprofen 800 mg PO TID PRN 01/08/17 Ondansetron HCl [Zofran Tab] 4 mg PO Q8H PRN #14 tablet 07/06/17 Disposition Discussed With: Patient, Family
== END 2017-07-06 00:20 | disposition home or self-care (01) ==
LOC: ED 23:12
DX: R51 Headache (principal); R11.2 Nausea with vomiting, unspecified; F17.210 Nicotine dependence, cigarettes, uncomplicated
CPT/HCPCS: 96372; 99283

== ENCOUNTER 2017-09-15 15:53 | Emergency (ER) ==
[2017-09-15 15:58] VITALS: BP 121/83; TEMP 101.7; BMI 47.8
--- NOTE | 2017-09-15 17:38 | CT ---
EXAM: CT abdomen and pelvis without intravenous contrast 09/15/2017. Sagittal and coronal reformatt ed images obtained HISTORY: Fall. Left lower quadrant pain COMPARISON: 01/08/2017 FINDINGS: The liver shows no acute abnormality. Gallbladder has been removed. The adrenal glands and kidneys show no acute process. The spleen and pancreas show no acute abnormal ity. There is no evidence of bowel obstruction. Normal appendix. Unremarkable urinary bladder. No free air or free fluid. No acute osseous abnormality. IMPRESSION: 1. No acute inflammatory or post-traumatic process identified within the abdomen or pelvis within th e limitation of a noncontrast enhanced examination.
--- NOTE | 2017-09-15 17:51 | ED.PDOC ---
General ED Provider: Dr. JOE CHATTERJEE Chief Complaint: Fever Stated Complaint: FEVER, ABDOMINAL PAIN Time Seen by Physician: 16:00 (SEEN WITH MEAT AND POULTRY INSPECTOR SVETLANA AT ALL TIMES NO TOXIC PRESENTATION) Mode of Arrival: Walk-In Information Source: Patient Exam Limitations: No limitations Nursing and Triage Documentation Reviewed and Agree: Yes Reviewed sepsis parameters & appropriate labs ordered?: Yes System Inflammatory Response Syndrome: Not Applicable Sepsis Protocol: For patient's 13 years and over: Temp is 96.8 and below OR 101 and greater Pulse >90 BPM Resp >20/minute Acutely Altered Mental Status Are patient's symptoms suggestive of a new infection, such as: -Pneumonia -Skin, Soft Tissue -Endocarditis -UTI -Bone, Joint Infection -Implantable Device -Acute Abdominal Infection -Wound Infection -Meningitis -Blood Stream Catheter Infection -Unknown GI Complaint Exam - Abdominal Pain Complaint/Exam Onset: Gradual Duration: 1 DAY Symptoms Are: Resolved Timing: Intermittent Initial Severity: Moderate Current Severity: None Location of Pain: LLQ Character: Reports: Aching Aggravating: Reports: None Alleviating: Reports: None Associated Signs and Symptoms: Reports: Nausea (VOMITED 1 ), Vomiting, Diarrhea Related History: Reports: Similar episode AAA Risk Factors: Reports: None Cardiac Risk Factors: Reports: None Ectopic Risk Factors: Reports: None Ovarian Torsion Risk Factors: Reports: None Surgical Obstruction Risk Factors: Reports: None Related Surgical History: Reports: None Patient Rh Status: Unknown Abdominal Findings: Present: None Differential Diagnoses: Appendicitis, Bowel Obstruction, Constipation, Gastroenteritis, Pancreatitis, UTI Review of Systems - Review Of Systems Constitutional: Reports: Fever Eyes: Reports: No symptoms Ears, Nose, Mouth, Throat: Reports: No symptoms Respiratory: Reports: Cough Cardiac: Reports: No symptoms GI: Reports: Abdominal pain : Reports: No symptoms Musculoskeletal: Reports: No symptoms Skin: Reports: No symptoms Neurological: Reports: No symptoms Endocrine: Reports: No symptoms Hematologic/Lymphatic: Reports: No symptoms All Other Systems: Reviewed and Negative Past Medical History - Past Medical History Previously Healthy: Yes Endocrine: Reports: None Cardiovascular: Reports: None Respiratory: Reports: None Hematological: Reports: None Gastrointestinal: Reports: None Genitourinary: Reports: Kidney stones Neuro/Psych: Reports: None Musculoskeletal: Reports: None Cancer: Reports: None Last Menstrual Period: aug 17 Other Pertinent Past Medical History: 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 , viD deff,, PERNICIOUS ANEMIA - Surgical History General Surgical History: Reports: Tubal ligation, Cholecystectomy, Other ( TUBES TO EARS) - Family History Family History: Reports: None - Social History Smoking Status: Current every day smoker, Heavy tobacco smoker Hx Substance Use: No Alcohol Screening: None Physical Exam - Physical Exam Appearance: Well-appearing, No pain distress, Well-nourished Eyes: ROSA ELENA, EOMI, Conjunctiva clear ENT: Ears normal, Nose normal, Oropharynx normal Respiratory: Airway patent, Breath sounds clear, Breath sounds equal, Respirations nonlabored Cardiovascular: RRR, Pulses normal, No rub, No murmur GI/: Soft, Nontender, No masses, Bowel sounds normal, No Organomegaly Musculoskeletal: Normal strength, ROM intact, No edema, No calf tenderness Skin: Warm, Dry, Normal color Neurological: Sensation intact, Motor intact, Reflexes intact, Cranial nerves intact, Alert, Oriented Psychiatric: Affect appropriate, Mood appropriate Interpretation - Radiology Interpretation Radiology Interpretation By: Radiologist Radiology Results: No acute changes Critical Care Note - Critical Care Note Total Time (mins): 0 Course - Course Hematology/Chemistry: 09/15/17 17:10 09/15/17 17:10 Orders, Labs, Meds: Lab Review 09/15/17 09/15/17 09/15/17 16:05 16:05 17:10 WBC 7.14 RBC 4.42 Hgb 13.3 Hct 37.8 MCV 85.5 MCH 30.1 MCHC 35.2 RDW Coeff of [place] 12.6 Plt Count 146 Immature Gran % (Auto) 0.4 Neut % (Auto) 75.8 Lymph % (Auto) 11.3 [place] % (Auto) 11.9 H Eos % (Auto) 0.3 Baso % (Auto) 0.3 Immature Gran # (Auto) 0.0 Neut # 5.4 Lymph # 0.8 [place] # 0.9 Eos # 0.0 Baso # 0.0 Sodium Potassium Chloride Carbon Dioxide Anion Gap BUN Creatinine Estimated GFR (MDRD) BUN/Creatinine Ratio Glucose Lactic Acid Calcium Total Bilirubin AST ALT Alkaline Phosphatase Total Protein Albumin Globulin Albumin/Globulin Ratio Amylase Lipase Urine Color Yellow Urine Clarity Cloudy Urine pH 5.0 Ur Specific [place] 1.025 Urine Protein Negative Urine Glucose (UA) Negative Urine Ketones Trace Urine Blood 1+ Urine Nitrite Negative Urine Bilirubin 1+ Urine Urobilinogen 0.2 Ur Leukocyte Esterase Negative Urine Microscopic RBC 5-10 Urine Microscopic WBC 2-5 Ur Squamous Epith Cells 5-10 Amorphous Sediment 1+ Urine Bacteria 1+ Urine Mucus Trace Urine Test Negative 09/15/17 09/15/17 17:10 17:10 WBC RBC Hgb Hct MCV MCH MCHC RDW Coeff of [place] Plt Count Immature Gran % (Auto) Neut % (Auto) Lymph % (Auto) [place] % (Auto) Eos % (Auto) Baso % (Auto) Immature Gran # (Auto) Neut # Lymph # [place] # Eos # Baso # Sodium 133 L Potassium 3.6 Chloride 104 Carbon Dioxide 21 Anion Gap 11.6 BUN 8 Creatinine 0.73 Estimated GFR (MDRD) 91.00 BUN/Creatinine Ratio 10.95 Glucose 91 Lactic Acid 4.0 L Calcium 8.5 Total Bilirubin 0.6 AST 22 ALT 23 Alkaline Phosphatase 64 Total Protein 6.8 Albumin 3.3 L Globulin 3.5 Albumin/Globulin Ratio 0.94 Amylase 34 Lipase 11 Urine Color Urine Clarity Urine pH Ur Specific [place] Urine Protein Urine Glucose (UA) Urine Ketones Urine Blood Urine Nitrite Urine Bilirubin Urine Urobilinogen Ur Leukocyte Esterase Urine Microscopic RBC Urine Microscopic WBC Ur Squamous Epith Cells Amorphous Sediment Urine Bacteria Urine Mucus Urine Test Orders Category Date Time Status AMYLASE Stat LAB 09/15/17 16:30 Ordered BLOOD CULTURE (ED ONLY) Stat LAB 09/15/17 Ordered CBC W/ AUTO DIFF Stat LAB 09/15/17 16:30 Ordered COMPREHENSIVE METABOLIC PANEL Stat LAB 09/15/17 16:30 Ordered LACTIC ACID Stat LAB 09/15/17 16:31 Ordered LIPASE Stat LAB 09/15/17 16:30 Ordered PROCALCITONIN Stat LAB 09/15/17 Ordered URINALYSIS C & S IF INDICATED Stat LAB 09/15/17 16:05 Completed URINE CULTURE Stat LAB 09/15/17 16:19 Received URINE Stat LAB 09/15/17 16:[address] ABDOMEN/PELVIS WO CONTRAST Stat RADS 09/15/17 16:30 Ordered Vital Signs: Temp Pulse Resp BP Pulse Ox 09/15/17 15:53 101.7 F H 113 H 20 121/83 97 Departure - Departure Time of Disposition: 17:51 Disposition: HOME SELF-CARE Discharge Problem: Abdominal pain Qualifiers: Abdominal location: generalized Qualified Code(s): R10.84 - Generalized abdominal pain Instructions: Abdominal Pain (ED) Condition: Good Pt referred to PMD for follow-up: Yes Additional Instructions: Please call your Family Physician as soon as possible to schedule a follow-up appointment. Allergies/Adverse Reactions: Allergies banana Adverse Reaction (Verified 09/15/17 16:01) clarithromycin [From Biaxin] Adverse Reaction (Verified 09/15/17 16:01) meperidine [From Demerol] Adverse Reaction (Verified 09/15/17 16:01) morphine Adverse Reaction (Verified 09/15/17 16:01) nicotine [From Nicoderm CQ] Adverse Reaction (Verified 09/15/17 16:01) Penicillins Adverse Reaction (Verified 09/15/17 16:01) prednisone Adverse Reaction (Verified 09/15/17 16:01) STATES ANYTHING OVER 10MG RAISES THE BLOOD PRESSURE tramadol Adverse Reaction (Verified 09/15/17 16:01) Home Medications: Ambulatory Orders Cyanocobalamin (Vitamin B-12) [Vitamin B-12] 1,000 mcg IM DIRECTED 04/19/14
== END 2017-09-15 17:58 | disposition home or self-care (01) ==
LOC: ED 15:53
DX: R10.84 Generalized abdominal pain (principal); R50.9 Fever, unspecified; R11.2 Nausea with vomiting, unspecified; R19.7 Diarrhea, unspecified; F17.210 Nicotine dependence, cigarettes, uncomplicated
CPT/HCPCS: 36415; 80053; 81001; 81025; 82150; 83605; 83690; 84145; 85025; 87040; 87086; 87186; 99283

== ENCOUNTER 2017-10-01 18:18 | Emergency (ER) ==
[2017-10-01 18:21] VITALS: TEMP 97.1; BMI 46.1
[2017-10-01 18:24] VITALS: BP 120/79
[2017-10-01] MEDS ORDERED: TORADOL IM STA (19:18)
--- NOTE | 2017-10-01 19:21 | ED.PDOC ---
General ED Provider: Dr. ANNETTE TAMAYO Chief Complaint: Fall Stated Complaint: Fell at home, landed on the bottom, ever since hurting to walk and stand. Time Seen by Physician: 19:19 Mode of Arrival: Walk-In Information Source: Patient Nursing and Triage Documentation Reviewed and Agree: Yes Reviewed sepsis parameters & appropriate labs ordered?: No System Inflammatory Response Syndrome: Not Applicable Sepsis Protocol: For patient's 13 years and over: Temp is 96.8 and below OR 101 and greater Pulse >90 BPM Resp >20/minute Acutely Altered Mental Status Are patient's symptoms suggestive of a new infection, such as: -Pneumonia -Skin, Soft Tissue -Endocarditis -UTI -Bone, Joint Infection -Implantable Device -Acute Abdominal Infection -Wound Infection -Meningitis -Blood Stream Catheter Infection -Unknown Musculoskeletal Complaint Exam - Back Pain Complaint/Exam Mechanism of Injury: Reports: Trauma Symptoms Are: Still present Timing: Constant Episodes Lasting: Hours Initial Severity: Severe Current Severity: Severe Location: Reports: Discrete, Radiating Character: Reports: Aching, Throbbing Aggravating: Reports: Movements, Lifting, Bending, Walking, Cough Alleviating: Reports: None Associated Signs and Symptoms: Denies: Swelling, Redness, Bruising, Fever, Weakness, Numbness, Tingling, Abdominal pain, Flank pain, Bladder incontinence, Bowel incontinence, Weight loss, Pain with weight bearing TAD Risk Factors: Reports: None AAA Risk Factors: Reports: None Cauda Equina Risk Factors: Reports: None Epidural Abcess Risk Factors: Reports: None Related Surgical History: Reports: None Focal Tenderness: Yes Paraspinal Muscle Tenderness: Yes Paraspinal Muscle Spasm: Yes Scoliosis: No Lordosis: No Kyphosis: No SLR Test: Right Positive, Left Negative Focal Weakness: Present: None Focal Sensory Loss: Present: None Gait: Present: Abnormal Differential Diagnoses: Fracture, Strain Review of Systems - Review Of Systems Constitutional: Reports: Malaise Eyes: Reports: No symptoms Ears, Nose, Mouth, Throat: Reports: No symptoms Respiratory: Reports: No symptoms Cardiac: Reports: No symptoms GI: Reports: No symptoms : Reports: No symptoms Musculoskeletal: Reports: Back pain, Joint pain Skin: Reports: No symptoms Neurological: Reports: No symptoms Endocrine: Reports: No symptoms Hematologic/Lymphatic: Reports: No symptoms All Other Systems: Reviewed and Negative Past Medical History - Past Medical History Previously Healthy: Yes Endocrine: Reports: None Cardiovascular: Reports: None Respiratory: Reports: None Hematological: Reports: None Gastrointestinal: Reports: None Genitourinary: Reports: Kidney stones Neuro/Psych: Reports: None Musculoskeletal: Reports: None Cancer: Reports: None Last Menstrual Period: 1 1/2 weeks ago Other Pertinent Past Medical History: 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 , viD deff,, PERNICIOUS ANEMIA - Surgical History General Surgical History: Reports: Tubal ligation, Cholecystectomy, Other ( TUBES TO EARS) - Family History Family History: Reports: None - Social History Smoking Status: Current every day smoker, Heavy tobacco smoker Smoking Cessation Counseling Time: > 3 min - 10 min Hx Substance Use: No Alcohol Screening: None Physical Exam - Physical Exam Appearance: Ill-appearing, Obese Eyes: EOMI, Conjunctiva clear ENT: Ears normal, Nose normal, Oropharynx normal Respiratory: Airway patent, Breath sounds clear, Breath sounds equal, Respirations nonlabored Cardiovascular: RRR, Pulses normal, No rub, No murmur GI/: Soft, Nontender, No masses, Bowel sounds normal, No Organomegaly Musculoskeletal: Limited ROM, Limited strength Skin: Warm, Dry, Normal color Neurological: Sensation intact, Motor intact, Reflexes intact, Cranial nerves intact, Alert, Oriented Psychiatric: Affect appropriate, Mood appropriate Interpretation - Radiology Interpretation Radiology Interpretation By: Radiologist Radiology Results: Negative Exam Interpreted: CT Scan Critical Care Note - Critical Care Note Total Time (mins): 10 Course - Course Orders, Labs, Meds: Orders Category Date Time Status Ketorolac Tromethamine [Toradol] MEDS 10/01/17 19:18 Discontinued 60 mg IM ONCE STA CT LUMBAR SPINE W/O CONTRAST Stat RADS 10/01/17 19:[address] PELVIS W/O CONTRAST Stat RADS 10/01/17 19:18 Completed Medications Discontinued Medications Generic Name Dose Route Start Last Admin Trade Name Freq PRN Reason Stop Dose Admin Ketorolac Tromethamine 60 mg 10/01/17 19:18 10/01/17 19:38 Toradol IM 10/01/17 19:19 60 mg ONCE STA Administration Vital Signs: Temp Pulse Resp BP Pulse Ox 10/01/17 18:18 97.1 F L 96 H 16 120/79 98 Departure - Departure Time of Disposition: 20:21 Disposition: HOME SELF-CARE Discharge Problem: Back pain Qualifiers: Back pain location: low back pain Chronicity: acute Back pain laterality: midline Sciatica presence: without sciatica Qualified Code(s): M54.5 - Low back pain Instructions: Lumbar Radiculopathy (ED) Condition: Stable Pt referred to PMD for follow-up: Yes IPMP verified?: Yes Prescriptions: Cyclobenzaprine HCl [Flexeril] 5 mg PO BID #14 tablet Hydrocodone/Acetaminophen [[place] 5-325 Tablet] 1 tab PO TID PRN #12 tablet PRN Reason: PAIN Allergies/Adverse Reactions: Allergies banana Adverse Reaction (Verified 10/01/17 18:22) clarithromycin [From Biaxin] Adverse Reaction (Verified 10/01/17 18:22) meperidine [From Demerol] Adverse Reaction (Verified 10/01/17 18:22) morphine Adverse Reaction (Verified 10/01/17 18:22) nicotine [From Nicoderm CQ] Adverse Reaction (Verified 10/01/17 18:22) Penicillins Adverse Reaction (Verified 10/01/17 18:22) prednisone Adverse Reaction (Verified 10/01/17 18:22) STATES ANYTHING OVER 10MG RAISES THE BLOOD PRESSURE tramadol Adverse Reaction (Verified 10/01/17 18:22) Home Medications: Ambulatory Orders Cyanocobalamin (Vitamin B-12) [Vitamin B-12] 1,000 mcg IM DIRECTED 04/19/14 Cyclobenzaprine HCl [Flexeril] 5 mg PO BID #14 tablet 10/01/17 Hydrocodone/Acetaminophen [[place] 5-325 Tablet] 1 tab PO TID PRN #12 tablet 10/01 Disposition Discussed With: Patient, Family
--- NOTE | 2017-10-01 19:56 | CT ---
EXAM: CT of the lumbar spine without contrast History: Lower back trauma. Technique: Multiplanar CT images through the lumbar spine were obtained without the administration o f IV contrast Findings: Cholecystectomy clips. No acute fracture or subluxation of the lumbar spine. Mild to moderate disc space narrowing at L5-S1. The other disc space heights are preserved. Bony spinal canal is not compromised. No significant bony neural foraminal narrowing. Impression: No acute osseous abnormality of the lumbar spine.
--- NOTE | 2017-10-01 19:56 | CT ---
EXAM: CT of the pelvis without contrast History: Pelvic trauma. Comparison: Lumbar spine CT 10/01/2017, CT abdomen pelvis 09/15/2017 Technique: Multiplanar CT images through the pelvis were obtained without the administration of IV c ontrast Findings: No dilated loops of bowel. No pelvic free fluid. Adnexal structures appear appropriate f or patient's age. No acute fracture or dislocation. Bilateral hip joint spaces are preserved. Impression: No acute osseous abnormality.
== END 2017-10-01 20:30 | disposition home or self-care (01) ==
LOC: ED 18:18
DX: M54.5 Low back pain (principal); W19.XXXA Unspecified fall, initial encounter; F17.210 Nicotine dependence, cigarettes, uncomplicated
CPT/HCPCS: 96372; 99282

== ENCOUNTER 2017-10-22 03:53 | Outpatient (CLI) ==
[2017-10-22 04:33] VITALS: BMI 43.5
== END 2017-10-22 03:54 | disposition critical access hospital (66) ==
LOC: AMBL 03:53
PROVIDERS: ATTEND Family Medicine
DX: S89.92XA Unspecified injury of left lower leg, initial encounter (principal); S50.12XA Contusion of left forearm, initial encounter; S91.114A Laceration without foreign body of right lesser toe(s) without damage to nail, initial encounter; S91.311A Laceration without foreign body, right foot, initial encounter; W18.2XXA Fall in (into) shower or empty bathtub, initial encounter; Y92.59 Other trade areas as the place of occurrence of the external cause

== ENCOUNTER 2017-10-22 04:09 | Emergency (ER) ==
[2017-10-22 04:33] VITALS: BP 111/74; TEMP 97.8; BMI 43.5
--- NOTE | 2017-10-22 05:25 | CT ---
EXAM: CT scan brain without contrast HISTORY: Fall COMPARISON: CT scan brain 11/01/2013 FINDINGS: Contiguous axial images obtained from the skull base to the convexities without contrast u tilizing 5-mm collimation. Sagittal and coronal reconstructions were imaged and reviewed. The ventri cles and CSF spaces are within normal limits. There are no acute intracranial findings. Mild mucope riosteal thickening is seen in the right maxillary sinus. IMPRESSION: No acute intracranial findings.
--- NOTE | 2017-10-22 05:26 | DI ---
EXAM: Left forearm two views HISTORY: Fall COMPARISON: None. FINDINGS: There is no acute fracture or dislocation. The surrounding soft tissues are unremarkable. IMPRESSION: No acute findings.
--- NOTE | 2017-10-22 05:26 | DI ---
EXAM: Left knee four views HISTORY: Fall COMPARISON: None. FINDINGS: There is no evidence of fracture or joint effusion. The joint spaces are well maintained. IMPRESSION: No acute findings
--- NOTE | 2017-10-22 05:28 | DI ---
EXAM: Right foot three views HISTORY: Trauma COMPARISON: None. FINDINGS: There is no acute fracture or dislocation. The surrounding soft tissues are unremarkable. IMPRESSION: No acute findings
--- NOTE | 2017-10-22 05:54 | ED.PDOC ---
General ED Provider: Dr. NATIVIDAD MATHIAS-ER Chief Complaint: Fall Stated Complaint: i fell in the shower Time Seen by Physician: 05:52 Mode of Arrival: Ambulance Information Source: Patient Exam Limitations: No limitations Primary Care Provider: IVIS FAIRBANKS Nursing and Triage Documentation Reviewed and Agree: Yes Reviewed sepsis parameters & appropriate labs ordered?: Yes System Inflammatory Response Syndrome: Not Applicable Sepsis Protocol: For patient's 13 years and over: Temp is 96.8 and below OR 101 and greater Pulse >90 BPM Resp >20/minute Acutely Altered Mental Status Are patient's symptoms suggestive of a new infection, such as: -Pneumonia -Skin, Soft Tissue -Endocarditis -UTI -Bone, Joint Infection -Implantable Device -Acute Abdominal Infection -Wound Infection -Meningitis -Blood Stream Catheter Infection -Unknown Musculoskeletal Complaint Exam - Lower Extremity Complaint/Exam Location of Pain: Reports: Leg Mechanism of Injury: Reports: Trauma Onset/Duration: one hour Symptoms Are: Still present Onset of Pain: Reports: Immediate Initial Severity: Mild Current Severity: Mild Location: Reports: Discrete (right foot, left knee and left forearm) Character: Reports: Dull, Aching Alleviating: Reports: None Aggravating: Reports: None Able to Bear Weight: Yes Associated Signs and Symptoms: Reports: Bruising Septic Arthritis Risk Factors: Reports: None Related Surgical History: Reports: None Lower Extremity Findings: Present: Ecchymosis, Tenderness, Limited range of motion NV Bundle Intact Distal to Injury: Yes Compartment Syndrome Risk Factors: Present: Pain. Absent: Paralysis, Pallor, Pulselessness, Paresthesias Eduardo's Sign Present: No Differential Diagnoses: Contusion Review of Systems - Review Of Systems Constitutional: Reports: No symptoms Eyes: Reports: No symptoms Ears, Nose, Mouth, Throat: Reports: No symptoms Respiratory: Reports: No symptoms Cardiac: Reports: No symptoms GI: Reports: No symptoms : Reports: No symptoms Musculoskeletal: Reports: Muscle pain Skin: Reports: No symptoms Neurological: Reports: No symptoms Endocrine: Reports: No symptoms Hematologic/Lymphatic: Reports: No symptoms All Other Systems: Reviewed and Negative Past Medical History - Past Medical History Previously Healthy: Yes Endocrine: Reports: None Cardiovascular: Reports: None Respiratory: Reports: None Hematological: Reports: None Gastrointestinal: Reports: None Genitourinary: Reports: Kidney stones Neuro/Psych: Reports: None Musculoskeletal: Reports: None Cancer: Reports: None Last Menstrual Period: YESTERDAY Other Pertinent Past Medical History: 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 , viD deff,, PERNICIOUS ANEMIA - Surgical History General Surgical History: Reports: Tubal ligation, Cholecystectomy, Other ( TUBES TO EARS) - Family History Family History: Reports: None - Social History Smoking Status: Current every day smoker, Heavy tobacco smoker Hx Substance Use: No Alcohol Screening: Occasionally Lives: With family - Immunizations Tetanus Shot up to Date: No Physical Exam - Physical Exam Appearance: Well-appearing, No pain distress, Well-nourished Pain Distress: Mild Eyes: ROSA ELENA, EOMI, Conjunctiva clear ENT: Ears normal, Nose normal, Oropharynx normal Neck: Supple Respiratory: Airway patent, Breath sounds clear, Breath sounds equal, Respirations nonlabored Cardiovascular: RRR, Pulses normal, No rub, No murmur GI/: Soft, Nontender, No masses, Bowel sounds normal, No Organomegaly Musculoskeletal: Limited ROM Skin: Warm, Dry, Normal color Neurological: Sensation intact, Motor intact, Reflexes intact, Cranial nerves intact, Alert, Oriented Psychiatric: Affect appropriate, Mood appropriate, Anxious Interpretation - Radiology Interpretation Radiology Interpretation By: Radiologist Radiology Results: Negative Critical Care Note - Critical Care Note Total Time (mins): 0 Course - Course Orders, Labs, Meds: Orders Category Date Time Status CT CERVICAL SPINE W/O CONTRAST Stat RADS 10/22/17 04:[address] HEAD W/O CONTRAST Stat RADS 10/22/17 04:45 Completed FOOT, RIGHT 3 VIEWS Stat RADS 10/22/17 04:46 Completed FOREARM, LEFT 2 VIEWS Stat RADS 10/22/17 04:46 Completed KNEE, LEFT 4 VIEWS Stat RADS 10/22/17 04:46 Completed Vital Signs: Temp Pulse Resp BP Pulse Ox 10/22/17 04:17 97.8 F 98 H 18 111/74 99 Departure - Departure Time of Disposition: 06:28 Disposition: HOME SELF-CARE Discharge Problem: Multiple contusions Instructions: Contusion in Adults (ED) Condition: Good Pt referred to PMD for follow-up: Yes IPMP verified?: No Additional Instructions: norco 5mg q 4hrs prn pain #10--f/u with pcp Allergies/Adverse Reactions: Allergies banana Adverse Reaction (Verified 10/22/17 04:34) clarithromycin [From Biaxin] Adverse Reaction (Verified 02/05/18 04:34) meperidine [From Demerol] Adverse Reaction (Verified 10/22/17 04:34) morphine Adverse Reaction (Verified 10/22/17 04:34) nicotine [From Nicoderm CQ] Adverse Reaction (Verified 10/22/17 04:34) Penicillins Adverse Reaction (Verified 10/22/17 04:34) prednisone Adverse Reaction (Verified 10/22/17 04:34) STATES ANYTHING OVER 10MG RAISES THE BLOOD PRESSURE tramadol Adverse Reaction (Verified 10/22/17 04:34) Home Medications: Ambulatory Orders Cyanocobalamin (Vitamin B-12) [Vitamin B-12] 1,000 mcg IM DIRECTED 04/19/14 Disposition Discussed With: Patient, Family
--- NOTE | 2017-10-22 06:25 | CT ---
EXAM: CT scan cervical spine HISTORY: Trauma COMPARISON: CT scan thorax 07/27/2016 FINDINGS: Contiguous axial images obtained through the cervical spine utilizing 2-mm collimation. S agittal and coronal reconstructions were imaged and reviewed. There is loss of the normal cervical lo rdosis suggesting paraspinal muscle spasm. The vertebral bodies are normal in height and alignment. The facet joints are intact.. Stable sclerotic changes are noted centrally within the C7 vertebral b liliana IMPRESSION: Loss normal cervical lordosis suggesting paraspinal muscle spasm. No acute findings
[2017-10-22] MEDS ORDERED: TENIVAC IM ONE (06:36)
== END 2017-10-22 06:55 | disposition home or self-care (01) ==
LOC: ED 04:09
DX: S80.10XA Contusion of unspecified lower leg, initial encounter (principal); T14.8XXA Other injury of unspecified body region, initial encounter; W18.2XXA Fall in (into) shower or empty bathtub, initial encounter; F17.210 Nicotine dependence, cigarettes, uncomplicated
CPT/HCPCS: 90471; 90714; 99283

== ENCOUNTER 2018-01-27 01:45 | Emergency (ER) | payer OTHER ==
[2018-01-27 01:58] VITALS: BP 123/84; TEMP 97.7; BMI 48.4
--- NOTE | 2018-01-27 02:40 | ED.PDOC ---
General ED Provider: Dr. ANNETTE TAMAYO Chief Complaint: Extremity Swelling/Pain Stated Complaint: Been feening anxiety since 6 months, gradually getting owrse, . leg swelling and pain, Time Seen by Physician: 02:38 Mode of Arrival: Walk-In Information Source: Patient Primary Care Provider: IVIS FAIRBANKS Nursing and Triage Documentation Reviewed and Agree: Yes Reviewed sepsis parameters & appropriate labs ordered?: No System Inflammatory Response Syndrome: Not Applicable Sepsis Protocol: For patient's 13 years and over: Temp is 96.8 and below OR 101 and greater Pulse >90 BPM Resp >20/minute Acutely Altered Mental Status Are patient's symptoms suggestive of a new infection, such as: -Pneumonia -Skin, Soft Tissue -Endocarditis -UTI -Bone, Joint Infection -Implantable Device -Acute Abdominal Infection -Wound Infection -Meningitis -Blood Stream Catheter Infection -Unknown Psychological Complaint Exam - Psychiatric Complaint/Exam Patient Complains Of: Present: Other (anxiety) Symptoms Are: Still present Timing: Constant Episodes Lasting: Weeks Initial Severity: Moderate Current Severity: Moderate Character: Present: Anxious, Angry Aggravating: Reports: None, Recent stress Associated Signs And Symptoms: Denies: Hostile, Confused, Hallucinating, Paranoid behavior, Sleep disturbance, Appetite change Related History: Denies: Suicidal thoughts, Suicidal plan, Suicidal gestures, Homicidal thoughts, Homicidal plan, Homicidal gestures Completed Suicide Risk Factors: None Patient In Custody Of Police: No Social Withdrawal Present: No Social Isolation Present: No Prior Suicide Attempt: No Injury From Prior Suicide Attempt: No Related Surgical History: Reports: None Patient Uncooperative For Exam: No Mood: Present: Anxious Appearance: Present: Clean Thought Process: Present: Logical Insight: Present: Good Memory: Intact Judgement: Normal Danger To Others: No Differential Diagnoses: Anxiety Review of Systems - Review Of Systems Constitutional: Reports: No symptoms Eyes: Reports: No symptoms Ears, Nose, Mouth, Throat: Reports: No symptoms Respiratory: Reports: No symptoms Cardiac: Reports: No symptoms GI: Reports: No symptoms : Reports: No symptoms Musculoskeletal: Reports: No symptoms Skin: Reports: No symptoms Neurological: Reports: Anxiety Endocrine: Reports: No symptoms Hematologic/Lymphatic: Reports: No symptoms All Other Systems: Reviewed and Negative Past Medical History - Past Medical History Previously Healthy: Yes Endocrine: Reports: None Cardiovascular: Reports: None Respiratory: Reports: None Hematological: Reports: None Gastrointestinal: Reports: None Genitourinary: Reports: Kidney stones Neuro/Psych: Reports: None Musculoskeletal: Reports: None Cancer: Reports: None Last Menstrual Period: 12/21/17 - is irregular Other Pertinent Past Medical History: 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 , viD deff,, PERNICIOUS ANEMIA - Surgical History General Surgical History: Reports: Tubal ligation, Cholecystectomy, Other ( TUBES TO EARS) - Family History Family History: Reports: None - Social History Smoking Status: Current every day smoker, Heavy tobacco smoker Smoking Cessation Counseling Time: > 3 min - 10 min Hx Substance Use: No Alcohol Screening: None - Immunizations Tetanus Shot up to Date: Yes Physical Exam - Physical Exam Appearance: Well-appearing, No pain distress, Well-nourished Eyes: ROSA ELENA, EOMI, Conjunctiva clear ENT: Ears normal, Nose normal, Oropharynx normal Respiratory: Airway patent, Breath sounds clear, Breath sounds equal, Respirations nonlabored Cardiovascular: RRR, Pulses normal, No rub, No murmur GI/: Soft, Nontender, No masses, Bowel sounds normal, No Organomegaly Musculoskeletal: Normal strength, ROM intact, No calf tenderness, Edema Skin: Warm, Dry, Normal color Neurological: Sensation intact, Motor intact, Reflexes intact, Cranial nerves intact, Alert, Oriented Psychiatric: Affect appropriate, Mood appropriate Critical Care Note - Critical Care Note Total Time (mins): 20 Course - Course Orders, Labs, Meds: Orders Category Date Time Status CBC W/ AUTO DIFF Stat LAB 01/27/18 02:36 Ordered COMPREHENSIVE METABOLIC PANEL Stat LAB 01/27/18 02:37 Ordered D-DIMER Stat LAB 01/27/18 Ordered Vital Signs: Temp Pulse Resp BP Pulse Ox 01/27/18 01:47 97.7 F 84 20 123/84 97 Departure - Departure Time of Disposition: 02:43 Disposition: HOME SELF-CARE Discharge Problem: Edema of lower extremity, Anxiety Instructions: Leg Edema (ED) Condition: Stable Pt referred to PMD for follow-up: Yes IPMP verified?: No Additional Instructions: no salt diet keep legs elevated when resting f/u with PMD Prescriptions: Alprazolam [Xanax] 0.5 mg PO BID #14 tablet Allergies/Adverse Reactions: Allergies banana Adverse Reaction (Verified 01/27/18 01:59) seizures clarithromycin [From Biaxin] Adverse Reaction (Verified 01/27/18 01:59) meperidine [From Demerol] Adverse Reaction (Verified 01/27/18 01:59) morphine Adverse Reaction (Verified 01/27/18 01:59) Anaphylaxis nicotine [From Nicoderm CQ] Adverse Reaction (Verified 01/27/18 01:59) seizures Penicillins Adverse Reaction (Verified 01/27/18 01:59) Hives prednisone Adverse Reaction (Verified 01/27/18 01:59) STATES ANYTHING OVER 10MG RAISES THE BLOOD PRESSURE tramadol Adverse Reaction (Verified 01/27/18 01:59) Anaphylaxis Home Medications: Ambulatory Orders Cyanocobalamin (Vitamin B-12) [Vitamin B-12] 1,000 mcg IM DIRECTED 04/19/14 Alprazolam [Xanax] 0.5 mg PO BID #14 tablet 01/27/18 Disposition Discussed With: Patient
[2018-01-27] MEDS ORDERED: ATIVAN IM STA (02:42)
== END 2018-01-27 03:32 | disposition home or self-care (01) ==
LOC: ED 01:45
DX: R60.0 Localized edema (principal); F41.9 Anxiety disorder, unspecified; F17.210 Nicotine dependence, cigarettes, uncomplicated
CPT/HCPCS: 36415; 80053; 85025; 85379; 96372; 99283

== ENCOUNTER 2018-05-01 12:57 | Emergency (ER) ==
[2018-05-01 13:11] VITALS: BP 120/86; TEMP 98.2; BMI 48.1
[2018-05-01] MEDS ORDERED: ZOFRAN 4 MG/2 ML IM STA (13:16)
[2018-05-01] MEDS ORDERED: LIDOCAINE HCL 1% SDV IM STA (13:16)
[2018-05-01] MEDS ORDERED: ROCEPHIN IM STA (13:16)
--- NOTE | 2018-05-01 13:20 | ED.PDOC ---
General ED Provider: Dr. JOE CHATTERJEE Chief Complaint: Abscess Stated Complaint: PERIUMBLICAL WOUND Time Seen by Physician: 13:18 (SEE PHOTOS) Mode of Arrival: Walk-In Information Source: Patient Exam Limitations: No limitations Nursing and Triage Documentation Reviewed and Agree: Yes Does patient meet sepsis criteria?: No If yes, has appropriate treatment been initiated?: No System Inflammatory Response Syndrome: Not Applicable Sepsis Protocol: For patient's 13 years and over: Temp is 96.8 and below OR 101 and greater Pulse >90 BPM Resp >20/minute Acutely Altered Mental Status Are patient's symptoms suggestive of a new infection, such as: -Pneumonia -Skin, Soft Tissue -Endocarditis -UTI -Bone, Joint Infection -Implantable Device -Acute Abdominal Infection -Wound Infection -Meningitis -Blood Stream Catheter Infection -Unknown Skin Complaint Exam - Skin/Soft Tissue Complaint/Exam Onset/Duration: 1 DAY Symptoms Are: Still present Timing: Constant Initial Severity: Mild Current Severity: Mild Location: PERIUMBLICAL PLEASE SEE PHOTOS Character: Reports: Redness Aggravating: Reports: Touch Alleviating: Reports: None Associated Signs and Symptoms: Denies: Fever, Chills, Itching, Drainage, Bruising, Tenderness, Red streaks, Joint swelling Related Surgical History: Reports: None Recent Exposure to Others w/Similar Symptoms: No Skin Findings: Present: Erythema Joint Tenderness Present: No Differential Diagnoses: Cellulitis Review of Systems - Review Of Systems Constitutional: Reports: No symptoms Eyes: Reports: No symptoms Ears, Nose, Mouth, Throat: Reports: No symptoms Respiratory: Reports: No symptoms Cardiac: Reports: No symptoms GI: Reports: No symptoms : Reports: No symptoms Musculoskeletal: Reports: No symptoms Skin: Reports: Rash (SEE PHOTO) Neurological: Reports: No symptoms Endocrine: Reports: No symptoms Hematologic/Lymphatic: Reports: No symptoms All Other Systems: Reviewed and Negative Past Medical History - Past Medical History Previously Healthy: Yes Endocrine: Reports: None Cardiovascular: Reports: None Respiratory: Reports: None Hematological: Reports: None Gastrointestinal: Reports: None Genitourinary: Reports: Kidney stones Neuro/Psych: Reports: None Musculoskeletal: Reports: None Cancer: Reports: None Last Menstrual Period: 2 WEEKS Other Pertinent Past Medical History: 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 , viD deff,, PERNICIOUS ANEMIA - Surgical History General Surgical History: Reports: Tubal ligation, Cholecystectomy, Other ( TUBES TO EARS) - Family History Family History: Reports: None - Social History Smoking Status: Current every day smoker, Heavy tobacco smoker Hx Substance Use: No Alcohol Screening: None Physical Exam - Physical Exam Appearance: Well-appearing, No pain distress, Well-nourished Eyes: ROSA ELENA, EOMI, Conjunctiva clear ENT: Ears normal, Nose normal, Oropharynx normal Respiratory: Airway patent, Breath sounds clear, Breath sounds equal, Respirations nonlabored Cardiovascular: RRR, Pulses normal, No rub, No murmur GI/: Soft, Nontender, No masses, Bowel sounds normal, No Organomegaly Musculoskeletal: Normal strength, ROM intact, No edema, No calf tenderness Skin: Warm, Dry (1 CM PERIUMBLICAL VESICULAR RASH SEE PHOTOS) Neurological: Sensation intact, Motor intact, Reflexes intact, Cranial nerves intact, Alert, Oriented Psychiatric: Affect appropriate, Mood appropriate Critical Care Note - Critical Care Note Total Time (mins): 0 Course - Course Orders, Labs, Meds: Orders Category Date Time Status Ceftriaxone Sodium [Rocephin] MEDS 05/01/18 13:16 Stat 1 gm IM ONCE STA Lidocaine HCl/Pf [Lidocaine HCl 1% Sdv] MEDS 05/01/18 13:16 Stat 2.1 ml IM ONCE STA Ondansetron HCl/Pf [Zofran 4 mg/2 ml] MEDS 05/01/18 13:16 Stat 4 mg IM ONCE STA Medications Discontinued Medications Generic Name Dose Route Start Last Admin Trade Name Freq PRN Reason Stop Dose Admin Ceftriaxone Sodium 1 gm 05/01/18 13:16 Rocephin IM 05/01/18 13:17 ONCE STA Lidocaine HCl 2.1 ml 05/01/18 13:16 Lidocaine Hcl 1% Sdv IM 05/01/18 13:17 ONCE STA Ondansetron HCl 4 mg 05/01/18 13:16 Zofran 4 Mg/2 Ml IM 05/01/18 13:17 ONCE STA Vital Signs: Temp Pulse Resp BP Pulse Ox 05/01/18 13:04 98.2 F 91 H 16 120/86 95 Departure - Departure Time of Disposition: 13:20 Disposition: HOME SELF-CARE Discharge Problem: Rash in adult Instructions: Acute Rash (ED) Condition: Good Pt referred to PMD for follow-up: Yes IPMP verified?: No Additional Instructions: Please call your Family Physician as soon as possible to schedule a follow-up appointment. Allergies/Adverse Reactions: Allergies banana Adverse Reaction (Verified 05/01/18 13:03) seizures clarithromycin [From Biaxin] Adverse Reaction (Verified 05/01/18 13:03) meperidine [From Demerol] Adverse Reaction (Verified 05/01/18 13:03) morphine Adverse Reaction (Verified 05/01/18 13:03) Anaphylaxis nicotine [From Nicoderm CQ] Adverse Reaction (Verified 05/01/18 13:03) seizures Penicillins Adverse Reaction (Verified 05/01/18 13:03) Hives prednisone Adverse Reaction (Verified 05/01/18 13:03) STATES ANYTHING OVER 10MG RAISES THE BLOOD PRESSURE tramadol Adverse Reaction (Verified 05/01/18 13:03) Anaphylaxis Home Medications: Ambulatory Orders Cyanocobalamin (Vitamin B-12) [Vitamin B-12] 1,000 mcg IM DIRECTED 04/19/14 Disposition Discussed With: Patient
--- NOTE | 2018-05-01 17:02 | CT ---
EXAM: CT chest without contrast HISTORY: Cough with small pain for red area above the umbilicus COMPARISON: CT chest 03/15/2018 and multiple priors TECHNIQUE: Serial axial images of the chest were obtained from the lung apices to the upper abdomen without contrast. These were viewed in multiple planes. FINDINGS: The thyroid is normal. The visualized vessels are unremarkable without aneurysm or stenos is. The heart is normal in size without pericardial effusion. There are no pathologically enlarged mediastinal or hilar lymph nodes. There is no pneumothorax or pleural effusion. There is no consolidation, nodule or mass. The airway s are patent. There is no abnormal ground-glass. The osseous structures demonstrate degenerative disease of the spine. The soft tissues in the upper abdomen demonstrate prior cholecystectomy. IMPRESSION: 1. No acute cardiopulmonary process or consolidation. 2. Prior cholecystectomy.
--- NOTE | 2018-05-01 17:06 | CT ---
EXAM: CT of the abdomen pelvis without contrast History: Abdominal pain and cough. Comparison: Chest CT 05/01/2018, CT abdomen pelvis 03/15/2018 Technique: Multiplanar CT images through the abdomen pelvis were obtained without the administration of IV contrast. Findings: Lung bases are free of consolidation. No acute osseous abnormalities. Status post cholecystectomy. No renal stones and no hydronephrosis. The liver measures 21 cm in naveed gth. The spleen measures 12.2 cm in length. No focal liver or splenic lesions identified within puri itations of a noncontrast study. No peripancreatic inflammation. Adrenal glands are unremarkable. No dilated loops of bowel. The appendix is not seen. There are no secondary signs of appendicitis. No free air and no ascites. No bladder wall thickening. Adnexal structures appear appropriate for patient's age. No perirectal inflammation. There is mild skin thickening and subcutaneous edema at the umbilicus with no fluid collections identified. Common bile duct and 1.1 cm in caliber. Impression: 1. No acute intra-abdominal or pelvic process. 2. Very mild cellulitis at the umbilicus with no abscess identified. 3. Mild hepatomegaly. 4. Status post cholecystectomy with mildly dilated common bile duct.
== END 2018-05-01 17:27 | disposition home or self-care (01) ==
LOC: ED 12:57
DX: R21 Rash and other nonspecific skin eruption (principal); R79.89 Other specified abnormal findings of blood chemistry; F17.210 Nicotine dependence, cigarettes, uncomplicated
CPT/HCPCS: 36415; 80053; 80074; 81001; 82550; 82803; 84145; 84484; 84703; 85025; 86617; 86757; 87040; 87086; 87798; 93005; 93010; 96372; 99282

== ENCOUNTER 2018-05-25 00:55 | Emergency (ER) ==
[2018-05-25 01:01] VITALS: BP 108/66; TEMP 98.1; BMI 46.0
--- NOTE | 2018-05-25 01:11 | ED.PDOC ---
General ED Provider: Dr. NATIVIDAD MATHIAS-ER Chief Complaint: Bite Stated Complaint: louann got these places Time Seen by Physician: 01:10 Mode of Arrival: Walk-In Information Source: Patient Exam Limitations: No limitations Primary Care Provider: KENNEDY PHILLIPS Nursing and Triage Documentation Reviewed and Agree: Yes Does patient meet sepsis criteria?: No System Inflammatory Response Syndrome: Not Applicable Sepsis Protocol: For patient's 13 years and over: Temp is 96.8 and below OR 101 and greater Pulse >90 BPM Resp >20/minute Acutely Altered Mental Status Are patient's symptoms suggestive of a new infection, such as: -Pneumonia -Skin, Soft Tissue -Endocarditis -UTI -Bone, Joint Infection -Implantable Device -Acute Abdominal Infection -Wound Infection -Meningitis -Blood Stream Catheter Infection -Unknown Skin Complaint Exam - Skin/Soft Tissue Complaint/Exam Onset/Duration: abd and right flank Symptoms Are: Still present Timing: Constant Initial Severity: Mild Current Severity: Mild Location: right flank and abdomen Character: Reports: Redness Aggravating: Reports: None Alleviating: Reports: None Associated Signs and Symptoms: Denies: Fever, Chills, Itching, Drainage, Bruising, Tenderness, Red streaks, Joint swelling Related History: Reports: Insect bite/sting Related Surgical History: Reports: None Recent Exposure to Others w/Similar Symptoms: No Skin Findings: Present: Erythema, Skin lesion, Pustules Joint Tenderness Present: No Differential Diagnoses: Infection Review of Systems - Review Of Systems Constitutional: Reports: No symptoms Eyes: Reports: No symptoms Ears, Nose, Mouth, Throat: Reports: No symptoms Respiratory: Reports: No symptoms Cardiac: Reports: No symptoms GI: Reports: No symptoms : Reports: No symptoms Musculoskeletal: Reports: No symptoms Skin: Reports: Lesions, Rash Neurological: Reports: No symptoms Endocrine: Reports: No symptoms Hematologic/Lymphatic: Reports: No symptoms All Other Systems: Reviewed and Negative Past Medical History - Past Medical History Previously Healthy: Yes Endocrine: Reports: None Cardiovascular: Reports: None Respiratory: Reports: None Hematological: Reports: None Gastrointestinal: Reports: None Genitourinary: Reports: Kidney stones Neuro/Psych: Reports: None Musculoskeletal: Reports: None Cancer: Reports: None Last Menstrual Period: 05/13/18 Other Pertinent Past Medical History: 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 , viD deff,, PERNICIOUS ANEMIA - Surgical History General Surgical History: Reports: Tubal ligation, Cholecystectomy, Other ( TUBES TO EARS) - Family History Family History: Reports: None - Social History Smoking Status: Current every day smoker, Heavy tobacco smoker Hx Substance Use: No Alcohol Screening: None - Immunizations Tetanus Shot up to Date: Yes (2016) Physical Exam - Physical Exam Appearance: Well-appearing, No pain distress, Well-nourished Eyes: ROSA ELENA, EOMI, Conjunctiva clear ENT: Ears normal, Nose normal, Oropharynx normal Neck: Supple Respiratory: Airway patent, Breath sounds clear, Breath sounds equal, Respirations nonlabored Cardiovascular: RRR, Pulses normal, No rub, No murmur GI/: Soft Musculoskeletal: Normal strength, ROM intact, No edema, No calf tenderness Skin: Warm, Dry, Normal color Neurological: Sensation intact, Motor intact, Reflexes intact, Cranial nerves intact, Alert, Oriented Psychiatric: Affect appropriate, Mood appropriate Critical Care Note - Critical Care Note Total Time (mins): 0 Course - Course Vital Signs: Temp Pulse Resp BP Pulse Ox 05/25/18 00:55 98.1 F 87 20 108/66 99 Departure - Departure Time of Disposition: 01:12 Disposition: HOME SELF-CARE Discharge Problem: Impetigo Instructions: Impetigo (ED) Condition: Good Pt referred to PMD for follow-up: Yes IPMP verified?: No Additional Instructions: bactrim ds bid x 7 days---bactroban ointment apply bid till healed--f/u prn Allergies/Adverse Reactions: Allergies banana Adverse Reaction (Verified 05/25/18 01:02) seizures clarithromycin [From Biaxin] Adverse Reaction (Verified 05/25/18 01:02) meperidine [From Demerol] Adverse Reaction (Verified 05/25/18 01:02) morphine Adverse Reaction (Verified 05/25/18 01:02) Anaphylaxis nicotine [From Nicoderm CQ] Adverse Reaction (Verified 05/25/18 01:02) seizures Penicillins Adverse Reaction (Verified 05/25/18 01:02) Hives prednisone Adverse Reaction (Verified 05/25/18 01:02) STATES ANYTHING OVER 10MG RAISES THE BLOOD PRESSURE tramadol Adverse Reaction (Verified 05/25/18 01:02) Anaphylaxis Home Medications: Ambulatory Orders Cyanocobalamin (Vitamin B-12) [Vitamin B-12] 1,000 mcg IM DIRECTED 04/19/14 Ergocalciferol (Vitamin D2) [Vitamin D2] 50,000 unit PO WEEKLY 05/25/18 Disposition Discussed With: Patient
== END 2018-05-25 01:16 | disposition home or self-care (01) ==
LOC: ED 00:55
DX: L01.00 Impetigo, unspecified (principal); F17.210 Nicotine dependence, cigarettes, uncomplicated
CPT/HCPCS: 99282

== ENCOUNTER 2018-09-25 15:01 | Emergency (ER) ==
[2018-09-25 15:05] VITALS: BP 124/80; TEMP 98.2; BMI 43.6
[2018-09-25] MEDS ORDERED: TORADOL IM STA (15:42)
[2018-09-25] MEDS ORDERED: ZOFRAN 4 MG/2 ML IM STA (15:42)
[2018-09-25] MEDS ORDERED: DILAUDID 0.5 MG/0.5 ML SYRINGE IM STA (15:43)
[2018-09-25 16:03] LABS: URINE PREGNANCY TEST NEGATIVE (NEGATIVE)
[2018-09-25] MEDS ORDERED: LIDOCAINE HCL 1% SDV IM STA (16:33)
[2018-09-25] MEDS ORDERED: ROCEPHIN IM STA (16:33)
--- NOTE | 2018-09-25 16:37 | ED.PDOC ---
General ED Provider: Dr. JOE CHATTERJEE Chief Complaint: Kidney Stone Stated Complaint: dysuria Time Seen by Physician: 15:00 (seen with randall tinoco at ALL TIMES ) Mode of Arrival: Walk-In Information Source: Patient Exam Limitations: No limitations Primary Care Provider: KENNEDY PHILLIPS Nursing and Triage Documentation Reviewed and Agree: Yes Does patient meet sepsis criteria?: No System Inflammatory Response Syndrome: Not Applicable Sepsis Protocol: For patient's 13 years and over: Temp is 96.8 and below OR 101 and greater Pulse >90 BPM Resp >20/minute Acutely Altered Mental Status Are patient's symptoms suggestive of a new infection, such as: -Pneumonia -Skin, Soft Tissue -Endocarditis -UTI -Bone, Joint Infection -Implantable Device -Acute Abdominal Infection -Wound Infection -Meningitis -Blood Stream Catheter Infection -Unknown Complaint Exam - Complaint/Exam Patient Complains of: Reports: Dysuria Onset/Duration: 1 DAY Symptoms Are: Still present Timing: Intermittent Initial Severity: Moderate Current Severity: Moderate Location of Pain: Reports: Suprapubic Character: Reports: Colicky, Cramping Aggravating: Reports: Urination Alleviating: Reports: None Associated Signs and Symptoms: Reports: Back pain, Dysuria. Denies: Diaphoresis , Fever, Hematuria, Constipation, Blood in stool, Rectal pain, Appetite change, Nausea, Vomiting, Decreased urine output, Increased urine frequency, Increased thirst, Decreased activity, Lethargy, Abdominal Pain, Bubble bath use, Vaginal bleeding, Vaginal discharge, Genital swelling, Genital blisters, Retained foreign body Ectopic Risk Factors: Reports: Maternal age >30 Ovarian Torsion Risk Factors: Reports: None Surgical Obstruction Risk Factors: Reports: None RH Status: Unknown Related Surgical History: Reports: None Abdominal Findings: Present: None Differential Diagnoses: Ureteral Stone, UTI Review of Systems - Review Of Systems Constitutional: Reports: No symptoms Eyes: Reports: No symptoms Ears, Nose, Mouth, Throat: Reports: No symptoms Respiratory: Reports: No symptoms Cardiac: Reports: No symptoms GI: Reports: No symptoms : Reports: Dysuria Musculoskeletal: Reports: No symptoms Skin: Reports: No symptoms Neurological: Reports: No symptoms Endocrine: Reports: No symptoms Hematologic/Lymphatic: Reports: No symptoms All Other Systems: Reviewed and Negative Past Medical History - Past Medical History Previously Healthy: Yes Endocrine: Reports: None Cardiovascular: Reports: None Respiratory: Reports: None Hematological: Reports: None Gastrointestinal: Reports: None Genitourinary: Reports: Kidney stones Neuro/Psych: Reports: None Musculoskeletal: Reports: None Cancer: Reports: None Last Menstrual Period: now Other Pertinent Past Medical History: 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 , viD deff,, PERNICIOUS ANEMIA - Surgical History General Surgical History: Reports: Tubal ligation, Cholecystectomy, Other ( TUBES TO EARS) - Family History Family History: Reports: None - Social History Smoking Status: Current every day smoker, Heavy tobacco smoker Hx Substance Use: No Alcohol Screening: None Physical Exam - Physical Exam Appearance: Well-appearing, No pain distress, Well-nourished Eyes: ROSA ELENA, EOMI, Conjunctiva clear ENT: Ears normal, Nose normal, Oropharynx normal Respiratory: Airway patent, Breath sounds clear, Breath sounds equal, Respirations nonlabored Cardiovascular: RRR, Pulses normal, No rub, No murmur GI/: Soft, Nontender, No masses, Bowel sounds normal, No Organomegaly Musculoskeletal: Normal strength, ROM intact, No edema, No calf tenderness Skin: Warm, Dry, Normal color Neurological: Sensation intact, Motor intact, Reflexes intact, Cranial nerves intact, Alert, Oriented Psychiatric: Affect appropriate, Mood appropriate Critical Care Note - Critical Care Note Total Time (mins): 0 Course - Course Hematology/Chemistry: 09/25/18 15:50 09/25/18 15:50 Orders, Labs, Meds: Lab Review 09/25/18 09/25/18 09/25/18 15:25 15:25 15:50 WBC 5.83 RBC 4.51 Hgb 13.5 Hct 39.4 MCV 87.4 MCH 29.9 MCHC 34.3 RDW Coeff of Alice 12.7 Plt Count 232 Immature Gran % (Auto) 0.3 Neut % (Auto) 65.1 Lymph % (Auto) 25.4 Dare % (Auto) 6.3 Eos % (Auto) 2.2 Baso % (Auto) 0.7 Immature Gran # (Auto) 0.0 Neut # (Auto) 3.8 Lymph # (Auto) 1.5 Dare # (Auto) 0.4 Eos # (Auto) 0.1 Baso # (Auto) 0.0 Sodium Potassium Chloride Carbon Dioxide Anion Gap BUN Creatinine Estimated GFR (MDRD) BUN/Creatinine Ratio Glucose Calcium Total Bilirubin AST ALT Alkaline Phosphatase Total Protein Albumin Globulin Albumin/Globulin Ratio Urine Color Yellow Urine Clarity Clear Urine pH 5.5 Ur Specific Bogart 1.025 Urine Protein Negative Urine Glucose (UA) Negative Urine Ketones Negative Urine Blood 3+ Urine Nitrite Positive Urine Bilirubin Negative Urine Urobilinogen 0.2 Ur Leukocyte Esterase 1+ Urine Microscopic RBC 10-20 Urine Microscopic WBC 5-10 Ur Squamous Epith Cells 20-30 Urine Bacteria 1+ Urine Test Negative 09/25/18 15:50 WBC RBC Hgb Hct MCV MCH MCHC RDW Coeff of Alice Plt Count Immature Gran % (Auto) Neut % (Auto) Lymph % (Auto) Dare % (Auto) Eos % (Auto) Baso % (Auto) Immature Gran # (Auto) Neut # (Auto) Lymph # (Auto) Dare # (Auto) Eos # (Auto) Baso # (Auto) Sodium 136.3 Potassium 3.62 Chloride 105.0 Carbon Dioxide 28.1 Anion Gap 6.82 BUN 9.8 Creatinine 0.74 Estimated GFR (MDRD) 89.00 BUN/Creatinine Ratio 13.24 Glucose 95.7 Calcium 8.98 Total Bilirubin 0.36 AST 36.2 H ALT 68.8 H Alkaline Phosphatase 83.1 Total Protein 7.16 Albumin 3.76 Globulin 3.40 Albumin/Globulin Ratio 1.10 Urine Color Urine Clarity Urine pH Ur Specific [place]art Urine Protein Urine Glucose (UA) Urine Ketones Urine Blood Urine Nitrite Urine Bilirubin Urine Urobilinogen Ur Leukocyte Esterase Urine Microscopic RBC Urine Microscopic WBC Ur Squamous Epith Cells Urine Bacteria Urine Test Orders Category Date Time Status CBC W/ AUTO DIFF Stat LAB 09/25/18 15:50 Completed COMPREHENSIVE METABOLIC PANEL Stat LAB 09/25/18 15:50 Completed URINALYSIS C & S IF INDICATED Stat LAB 09/25/18 15:25 Completed URINE CULTURE Stat LAB 09/25/18 15:25 Received URINE Stat LAB 09/25/18 15:25 Completed Ceftriaxone Sodium [Rocephin] MEDS 09/25/18 16:33 Stat 1 gm IM ONCE STA Hydromorphone HCl [Dilaudid 0.5 mg/0.5 ml Syringe] MEDS 09/25/18 15:43 Discontinued 0.5 mg IM ONCE STA Lidocaine HCl/Pf [Lidocaine HCl 1% Sdv] MEDS 09/25/18 16:33 Stat 2.1 ml IM ONCE STA Ondansetron HCl/Pf [Zofran 4 mg/2 ml] MEDS 09/25/18 15:42 Discontinued 4 mg IM ONCE STA CT ABD/PEL WO RENAL STONE PROT Stat RADS 09/25/18 15:41 Ordered Medications Discontinued Medications Generic Name Dose Route Start Last Admin Trade Name Lien PRN Reason Stop Dose Admin Ceftriaxone Sodium 1 gm 09/25/18 16:33 Rocephin IM 09/25/18 16:34 ONCE STA Hydromorphone HCl 0.5 mg 09/25/18 15:43 09/25/18 15:55 Dilaudid 0.5 Mg/0.5 Ml Syringe IM 09/25/18 15:44 0.5 mg ONCE STA Administration Lidocaine HCl 2.1 ml 09/25/18 16:33 Lidocaine Hcl 1% Sdv IM 09/25/18 16:34 ONCE STA Ondansetron HCl 4 mg 09/25/18 15:42 09/25/18 15:54 Zofran 4 Mg/2 Ml IM 09/25/18 15:43 4 mg ONCE STA Administration Vital Signs: Temp Pulse Resp BP Pulse Ox 09/25/18 15:01 98.2 F 80 18 124/80 98 Departure - Departure Time of Disposition: 16:37 Disposition: HOME SELF-CARE Discharge Problem: UTI (urinary tract infection) Qualifiers: Urinary tract infection type: site unspecified Hematuria presence: with hematuria Qualified Code(s): N39.0 - Urinary tract infection, site not specified ; R31.9 - Hematuria, unspecified Instructions: Urinary Tract Infection in Women (ED) Condition: Good Pt referred to PMD for follow-up: Yes IPMP verified?: No Additional Instructions: Please call your Family Physician as soon as possible to schedule a follow-up appointment. Prescriptions: Sulfamethoxazole/Trimethoprim [Bactrim Ds 800/160 mg] 1 tab PO Q12HR #8 tablet Allergies/Adverse Reactions: Allergies banana Adverse Reaction (Verified 09/25/18 15:06) seizures clarithromycin [From Biaxin] Adverse Reaction (Verified 09/25/18 15:06) meperidine [From Demerol] Adverse Reaction (Verified 09/25/18 15:06) morphine Adverse Reaction (Verified 09/25/18 15:06) Anaphylaxis nicotine [From Nicoderm CQ] Adverse Reaction (Verified 09/25/18 15:06) seizures Penicillins Adverse Reaction (Verified 09/25/18 15:06) Hives prednisone Adverse Reaction (Verified 09/25/18 15:06) STATES ANYTHING OVER 10MG RAISES THE BLOOD PRESSURE tramadol Adverse Reaction (Verified 09/25/18 15:06) Anaphylaxis Home Medications: Ambulatory Orders Ergocalciferol (Vitamin D2) [Vitamin D2] 50,000 unit PO WEEKLY 05/25/18 Sulfamethoxazole/Trimethoprim [Bactrim Ds 800/160 mg] 1 tab PO Q12HR #8 tablet 09/25/18
--- NOTE | 2018-09-25 16:40 | CT ---
EXAM: CT of the abdomen pelvis without contrast History: Left flank pain. Comparison: CT abdomen pelvis 05/01/2018 Technique: Multiplanar CT images through the abdomen pelvis were obtained without the administration of IV contrast Findings: Lung bases are clear. No acute osseous abnormalities. Status post cholecystectomy. The liver is again mildly enlarged. No renal stones and no hydronephro sis. Spleen is unremarkable. The visualized appendix is not dilated or inflamed. No ureteral calcu li. No bladder wall thickening. No bowel obstruction. No free air and no ascites. No peripancreat ic inflammation. Adrenal glands are unremarkable. Adnexal structures appear appropriate for patient 's age. Impression: 1. No acute intra-abdominal or pelvic process. 2. Mild hepatomegaly
== END 2018-09-25 17:08 | disposition home or self-care (01) ==
LOC: ED 15:01
DX: N39.0 Urinary tract infection, site not specified (principal); R31.9 Hematuria, unspecified; F17.210 Nicotine dependence, cigarettes, uncomplicated; Z87.442 Personal history of urinary calculi
CPT/HCPCS: 36415; 74176; 80053; 81001; 81025; 85025; 87086; 87186; 96372; 99283